=== PATIENT | female | born 1940 | race Hispanic/Latino ===

== ENCOUNTER 2018-02-24 10:34 | Inpatient (IN) | payer MEDICARE ==
[~2018-02-24] VITALS: Ht 152.4 cm; Wt 33.8 kg
[2018-02-24] MEDS ORDERED: FAMOTIDINE 20MG TAB 20 MG TAB ONE (10:52)
[2018-02-24 11:32] LABS: BASOPHILS % (AUTO) 0.2 % (0.0-5.0); EOSINOPHILS % (AUTO) 0.1 % (0.0-8.0); HEMATOCRIT 35.3 % (36-48); LYMPHOCYTES % (AUTO) 6.2 % (21.0-51.0); MEAN CORPUSCULAR HEMOGLOBIN 27.5 pg (27.0-33.0); MEAN CORPUSCULAR HGB CONC 31.7 g/dL (32.0-36.0); MEAN CORPUSCULAR VOLUME 86.8 fL (79-99); MONOCYTES % (AUTO) 6.4 % (3.0-13.0); NEUTROPHILS % (AUTO) 87.1 % (40.0-77.0); PLATELET COUNT (AUTO) 488 K/uL (130-400); RED BLOOD CELL COUNT(AUTO) 4.07 MIL/uL (4.00-5.50); RED CELL DISTRIBUTION WIDTH 15.4 % (11.0-15.5); WHITE BLOOD COUNT (AUTO) 15.4 K/uL (4.8-10.8)
[2018-02-24 11:41] LABS: CREATININE 0.7 mg/dL (0.5-1.5); POTASSIUM 3.1 mmol/L (3.5-5.1)
[2018-02-24 11:46] LABS: BILIRUBIN,TOTAL 0.7 mg/dL (0.2-1.0); TOTAL PROTEIN, SERUM 7.8 g/dL (6.0-8.3)
[2018-02-24] MEDS ORDERED: POTASSIUM BICARB/CIT AC 25 MEQ TABLET.EFF ONE (12:06)
[2018-02-24] MEDS ORDERED: METHYLPREDNISOLONE SOD SUCC 125MG/2ML VIAL ONE (12:07)
[2018-02-24] MEDS ORDERED: LEVOFLOXACIN 750 MG/D5W 150 ML 150 ML ONE (12:07)
[2018-02-24] MEDS ORDERED: IPRATROPIUM/ALBUTEROL SULFATE 3 ML SOLUTION IH ONE (12:38)
[2018-02-24] MEDS ORDERED: POTASSIUM CHLORIDE 20 MEQ ERTAB PO PRN (13:45)
[2018-02-24] MEDS ORDERED: ONDANSETRON HCL 4 MG/2 ML VIAL IV PRN (13:45)
[2018-02-24] MEDS ORDERED: ACETAMINOPHEN 325 MG TAB PO PRN ×2 (13:45)
[2018-02-24] MEDS: METHYLPREDNISOLONE SOD SUCC 125MG/2ML VIAL IVP SCH ×2 (13:45→20:58)
[2018-02-24] MEDS ORDERED: POTASSIUM CHLORIDE 10% ELIXIR 20 MEQ/15 ML UDCUP PO PRN (13:45)
[2018-02-24] MEDS ORDERED: LACTULOSE 20 GM/30 ML UDCUP PO PRN (13:45)
[2018-02-24] MEDS ORDERED: LIDOCAINE HCL-MPF 1% 2ML VIAL IVP PRN (13:45)
[2018-02-24] MEDS ORDERED: MAG HYDROX/AL HYDROX/SIMETH ES 30 ML SUSP UDCUP PO PRN (13:45)
[2018-02-24] MEDS ORDERED: POTASSIUM CHLORIDE 20MEQ/100ML 100 ML IV PRN (13:45)
[2018-02-24] MEDS: LEVOFLOXACIN 500 MG/D5W 100 ML 100 ML IV SCH (13:45)
[2018-02-24] MEDS ORDERED: IPRATROPIUM/ALBUTEROL SULFATE 3 ML SOLUTION IH SCH (14:00)
[2018-02-24 14:46] LABS: APPEARANCE,URINE CLEAR (CLEAR); BILIRUBIN,URINE NEGATIVE (NEGATIVE); COLOR,URINE YELLOW (YELLOW); GLUCOSE, URINE (UA) 100 mg/dL (NEGATIVE); KETONES,URINE NEGATIVE (NEGATIVE); LEUKOCYTE ESTERASE ,URINE NEGATIVE (NEGATIVE); NITRATE,URINE NEGATIVE (NEGATIVE); OCCULT BLOOD,URINE NEGATIVE (NEGATIVE); PROTEIN,URINE 30 (NEGATIVE)
[2018-02-24 15:33] LABS: BACTERIA,URINE Rare /HPF (None Seen); RBC,URINE 0-1 /HPF (0-1); SQUAMOUS EPITHELIAL CELL,UR Rare /HPF (0-2); WBC,URINE 0-1 /HPF (0-1)
[2018-02-24 15:34] LABS: AMORPHOUS SEDIMENT,UR Few /LPF (None Seen)
[2018-02-24] MEDS ORDERED: BUDESONIDE 0.5 MG/2 ML INH IH ONE (18:13)
[2018-02-24] MEDS ORDERED: ENOXAPARIN SODIUM 40 MG/0.4 ML SYRINGE SQ ONE (18:14)
[2018-02-24] MEDS: IPRATROPIUM/ALBUTEROL SULFATE 3 ML SOLUTION IH SCH ×2 (18:41→21:55)
[2018-02-24] MEDS: BUDESONIDE 0.5 MG/2 ML INH IH SCH (18:48)
[2018-02-24] MEDS ORDERED: METHYLPREDNISOLONE SOD SUCC 40MG/ML 1ML ONE (20:37)
[2018-02-24 21:20] VITALS: BP 115/66
[2018-02-24] MEDS: FAMOTIDINE 20MG TAB 20 MG TAB PO SCH (21:59)
[2018-02-24] MEDS: GUAIFENESIN-DM 200/20 MG 10 ML PO PRN (22:00)
[2018-02-24] MEDS ORDERED: LATA2.5D2 OP (23:31)
[2018-02-24] MEDS ORDERED: ATEN50TA PO (23:31)
[2018-02-24] MEDS ORDERED: BUDE10.2 IH (23:31)
[2018-02-24] MEDS ORDERED: AMLO5TAB2 PO (23:31)
[2018-02-25] VITALS: BP 122/68
[2018-02-25] MEDS: IPRATROPIUM/ALBUTEROL SULFATE 3 ML SOLUTION IH SCH ×6 (02:14→22:47)
[2018-02-25 04:00] VITALS: BP 130/66
[2018-02-25 04:12] LABS: HEMATOCRIT 33.9 % (36-48); MEAN CORPUSCULAR HEMOGLOBIN 27.9 pg (27.0-33.0); MEAN CORPUSCULAR HGB CONC 31.9 g/dL (32.0-36.0); MEAN CORPUSCULAR VOLUME 87.4 fL (79-99); NUCLEATED RED BLOOD CELLS 0.1 % (0.0-0.19); PLATELET COUNT (AUTO) 423 K/uL (130-400); RED BLOOD CELL COUNT(AUTO) 3.87 MIL/uL (4.00-5.50); RED CELL DISTRIBUTION WIDTH 15.6 % (11.0-15.5); WHITE BLOOD COUNT (AUTO) 9.2 K/uL (4.8-10.8)
[2018-02-25 04:21] LABS: CREATININE 0.8 mg/dL (0.5-1.5); POTASSIUM 4.2 mmol/L (3.5-5.1)
[2018-02-25] MEDS: METHYLPREDNISOLONE SOD SUCC 125MG/2ML VIAL IVP SCH ×3 (04:36→22:05)
[2018-02-25] MEDS: BUDESONIDE 0.5 MG/2 ML INH IH SCH ×2 (06:22→18:53)
[2018-02-25 08:24] VITALS: BP 140/70
[2018-02-25] MEDS: ENOXAPARIN SODIUM 30 MG/0.3 ML SQ SCH (10:47)
[2018-02-25] MEDS: FAMOTIDINE 20MG TAB 20 MG TAB PO SCH ×2 (10:47→22:06)
[2018-02-25] MEDS: MEGESTROL 400 MG/10 ML UDCUP PO SCH (11:16)
[2018-02-25 11:50] VITALS: BP 129/71
[2018-02-25] MEDS: LEVOFLOXACIN 500 MG/D5W 100 ML 100 ML IV SCH (13:53)
[2018-02-25 16:16] VITALS: BP 121/70
[2018-02-25 19:20] VITALS: BP 101/60
[2018-02-25] MEDS: LATANOPROST 2.5 ML DROPS OP SCH (22:06)
[2018-02-25] MEDS: GUAIFENESIN-DM 200/20 MG 10 ML PO PRN (22:07)
[2018-02-26] VITALS (7 sets, daily range): BP systolic 109–133; BP diastolic 52–63
[2018-02-26] MEDS: IPRATROPIUM/ALBUTEROL SULFATE 3 ML SOLUTION IH SCH ×6 (02:18→22:33)
[2018-02-26] MEDS: METHYLPREDNISOLONE SOD SUCC 125MG/2ML VIAL IVP SCH ×2 (05:42→16:37)
[2018-02-26] MEDS: BUDESONIDE 0.5 MG/2 ML INH IH SCH ×2 (06:27→22:52)
[2018-02-26] MEDS ORDERED: VANCOMYCIN PROTOCOL PER PHARMACY IV SCH (09:00)
[2018-02-26] MEDS: AMLODIPINE BESYLATE 5 MG TAB PO SCH (10:12)
[2018-02-26] MEDS: MEGESTROL 400 MG/10 ML UDCUP PO SCH (10:13)
[2018-02-26] MEDS: ATENOLOL 50 MG TABLET PO SCH (10:13)
[2018-02-26] MEDS: FAMOTIDINE 20MG TAB 20 MG TAB PO SCH ×2 (10:14→22:41)
[2018-02-26] MEDS: ENOXAPARIN SODIUM 30 MG/0.3 ML SQ SCH (10:14)
[2018-02-26] MEDS ORDERED: SODIUM CHLORIDE 3% FOR INHALATION 4 ML/AMP VIAL.NEB IH ONE ×2 (10:18→18:10)
[2018-02-26] MEDS ORDERED: VANCOMYCIN 750MG + D5W 250 ML IV ONE ×2 (12:00)
[2018-02-26] MEDS ORDERED: COMPOUND IV REFRIGERATED 1 EACH IVSOLN MISC PRN (12:00)
[2018-02-26] MEDS ORDERED: MEROPENEM 500MG+NS 50ML 50 ML IV SCH (14:00)
[2018-02-26] MEDS: MEROPENEM 500 MG VIAL IVP SCH ×2 (16:37→22:42)
[2018-02-26] MEDS: METHYLPREDNISOLONE SOD SUCC 40MG/ML 1ML IVP SCH (22:43)
[2018-02-26] MEDS: LATANOPROST 2.5 ML DROPS OP SCH (22:52)
[2018-02-27] MEDS ORDERED: VANCOMYCIN 500MG+NS 100ML 100 ML IV SCH
[2018-02-27] MEDS: IPRATROPIUM/ALBUTEROL SULFATE 3 ML SOLUTION IH SCH ×6 (02:40→22:09)
[2018-02-27 03:58] VITALS: BP 111/56
[2018-02-27] MEDS ORDERED: SODIUM CHLORIDE 3% FOR INHALATION 4 ML/AMP VIAL.NEB IH ONE (05:50)
[2018-02-27] MEDS: MEROPENEM 500 MG VIAL IVP SCH ×3 (06:01→21:57)
[2018-02-27] MEDS: METHYLPREDNISOLONE SOD SUCC 40MG/ML 1ML IVP SCH ×3 (06:02→21:57)
[2018-02-27] MEDS: BUDESONIDE 0.5 MG/2 ML INH IH SCH ×2 (06:18→18:12)
[2018-02-27 09:19] VITALS: BP 132/62
[2018-02-27] MEDS: ATENOLOL 50 MG TABLET PO SCH (10:18)
[2018-02-27] MEDS: MEGESTROL 400 MG/10 ML UDCUP PO SCH (10:18)
[2018-02-27] MEDS: FAMOTIDINE 20MG TAB 20 MG TAB PO SCH ×2 (10:18→21:57)
[2018-02-27] MEDS: AMLODIPINE BESYLATE 5 MG TAB PO SCH (10:18)
[2018-02-27] MEDS: ENOXAPARIN SODIUM 30 MG/0.3 ML SQ SCH (10:18)
[2018-02-27 16:51] VITALS: BP 110/53
[2018-02-27 19:00] VITALS: BP 111/64
[2018-02-27] MEDS: LATANOPROST 2.5 ML DROPS OP SCH (21:58)
[2018-02-28] VITALS: BP_SYST 115; BP_SYST 120; BP_DIAS 59; BP_DIAS 73
[2018-02-28] MEDS: IPRATROPIUM/ALBUTEROL SULFATE 3 ML SOLUTION IH SCH ×6 (02:30→22:12)
[2018-02-28 03:41] LABS: HEMATOCRIT 33.5 % (36-48); MEAN CORPUSCULAR VOLUME 87.4 fL (79-99); PLATELET COUNT (AUTO) 392 K/uL (130-400); RED BLOOD CELL COUNT(AUTO) 3.83 MIL/uL (4.00-5.50); RED CELL DISTRIBUTION WIDTH 15.6 % (11.0-15.5); WHITE BLOOD COUNT (AUTO) 14.5 K/uL (4.8-10.8)
[2018-02-28 04:00] VITALS: BP 126/64
[2018-02-28] MEDS: METHYLPREDNISOLONE SOD SUCC 40MG/ML 1ML IVP SCH ×3 (06:21→22:14)
[2018-02-28] MEDS: MEROPENEM 500 MG VIAL IVP SCH ×3 (06:21→22:14)
[2018-02-28] MEDS: BUDESONIDE 0.5 MG/2 ML INH IH SCH ×2 (06:25→18:13)
[2018-02-28 07:58] VITALS: BP 131/59
[2018-02-28] MEDS: ATENOLOL 50 MG TABLET PO SCH (08:29)
[2018-02-28] MEDS: ENOXAPARIN SODIUM 30 MG/0.3 ML SQ SCH (08:30)
[2018-02-28] MEDS: FAMOTIDINE 20MG TAB 20 MG TAB PO SCH ×2 (08:30→22:14)
[2018-02-28] MEDS: MEGESTROL 400 MG/10 ML UDCUP PO SCH (08:30)
[2018-02-28] MEDS: AMLODIPINE BESYLATE 5 MG TAB PO SCH (08:30)
[2018-02-28 11:50] VITALS: BP 107/73
[2018-02-28 16:00] VITALS: BP 114/56
[2018-02-28 19:00] VITALS: BP 132/71
[2018-02-28] MEDS: LATANOPROST 2.5 ML DROPS OP SCH (22:21)
[2018-03-01] VITALS (13 sets, daily range): BP systolic 100–151; BP diastolic 51–76
[2018-03-01] MEDS: IPRATROPIUM/ALBUTEROL SULFATE 3 ML SOLUTION IH SCH ×6 (02:00→22:16)
[2018-03-01 05:47] LABS: HEMATOCRIT 34.1 % (36-48); MEAN CORPUSCULAR HEMOGLOBIN 28.4 pg (27.0-33.0); MEAN CORPUSCULAR HGB CONC 32.1 g/dL (32.0-36.0); MEAN CORPUSCULAR VOLUME 88.3 fL (79-99); PLATELET COUNT (AUTO) 387 K/uL (130-400); RED BLOOD CELL COUNT(AUTO) 3.86 MIL/uL (4.00-5.50); RED CELL DISTRIBUTION WIDTH 15.6 % (11.0-15.5); WHITE BLOOD COUNT (AUTO) 14.4 K/uL (4.8-10.8)
[2018-03-01 05:52] LABS: CREATININE 0.6 mg/dL (0.5-1.5); POTASSIUM 4.1 mmol/L (3.5-5.1)
[2018-03-01] MEDS: BUDESONIDE 0.5 MG/2 ML INH IH SCH ×2 (06:06→18:13)
[2018-03-01] MEDS: METHYLPREDNISOLONE SOD SUCC 40MG/ML 1ML IVP SCH ×3 (06:14→20:45)
[2018-03-01] MEDS: MEROPENEM 500 MG VIAL IVP SCH ×3 (06:14→20:45)
[2018-03-01] MEDS: FAMOTIDINE 20MG TAB 20 MG TAB PO SCH ×2 (09:14→20:45)
[2018-03-01] MEDS: MEGESTROL 400 MG/10 ML UDCUP PO SCH (09:14)
[2018-03-01] MEDS: ATENOLOL 50 MG TABLET PO SCH (09:15)
[2018-03-01] MEDS: AMLODIPINE BESYLATE 5 MG TAB PO SCH (09:15)
[2018-03-01] MEDS: ENOXAPARIN SODIUM 30 MG/0.3 ML SQ SCH (09:20)
[2018-03-01] MEDS: LATANOPROST 2.5 ML DROPS OP SCH (20:52)
[2018-03-02] VITALS (9 sets, daily range): BP systolic 109–138; BP diastolic 59–85
[2018-03-02] MEDS: IPRATROPIUM/ALBUTEROL SULFATE 3 ML SOLUTION IH SCH ×6 (01:29→22:03)
[2018-03-02] MEDS: METHYLPREDNISOLONE SOD SUCC 40MG/ML 1ML IVP SCH (05:49)
[2018-03-02] MEDS: MEROPENEM 500 MG VIAL IVP SCH ×3 (05:49→21:51)
[2018-03-02 06:01] LABS: HEMATOCRIT 34.7 % (36-48); MEAN CORPUSCULAR HEMOGLOBIN 27.7 pg (27.0-33.0); MEAN CORPUSCULAR HGB CONC 31.9 g/dL (32.0-36.0); MEAN CORPUSCULAR VOLUME 86.6 fL (79-99); PLATELET COUNT (AUTO) 468 K/uL (130-400); RED CELL DISTRIBUTION WIDTH 15.8 % (11.0-15.5); WHITE BLOOD COUNT (AUTO) 15.8 K/uL (4.8-10.8)
[2018-03-02] MEDS: BUDESONIDE 0.5 MG/2 ML INH IH SCH ×2 (06:15→18:40)
[2018-03-02 06:16] LABS: CREATININE 0.6 mg/dL (0.5-1.5)
[2018-03-02] MEDS: MEGESTROL 400 MG/10 ML UDCUP PO SCH (10:14)
[2018-03-02] MEDS: ATENOLOL 50 MG TABLET PO SCH (10:15)
[2018-03-02] MEDS: FAMOTIDINE 20MG TAB 20 MG TAB PO SCH ×2 (10:15→20:23)
[2018-03-02] MEDS: AMLODIPINE BESYLATE 5 MG TAB PO SCH (10:15)
[2018-03-02] MEDS: ENOXAPARIN SODIUM 30 MG/0.3 ML SQ SCH (10:19)
[2018-03-02] MEDS: PREDNISONE 20 MG TABLET PO SCH (20:23)
[2018-03-02] MEDS: LATANOPROST 2.5 ML DROPS OP SCH (20:23)
[2018-03-03] MEDS: IPRATROPIUM/ALBUTEROL SULFATE 3 ML SOLUTION IH SCH ×6 (01:38→22:05)
[2018-03-03 03:36] VITALS: BP 129/74
[2018-03-03 03:55] LABS: HEMATOCRIT 35.2 % (36-48); MEAN CORPUSCULAR HEMOGLOBIN 27.9 pg (27.0-33.0); MEAN CORPUSCULAR HGB CONC 31.9 g/dL (32.0-36.0); MEAN CORPUSCULAR VOLUME 87.4 fL (79-99); PLATELET COUNT (AUTO) 438 K/uL (130-400); RED BLOOD CELL COUNT(AUTO) 4.03 MIL/uL (4.00-5.50); WHITE BLOOD COUNT (AUTO) 16.1 K/uL (4.8-10.8)
[2018-03-03] MEDS: MEROPENEM 500 MG VIAL IVP SCH ×3 (05:49→22:01)
[2018-03-03] MEDS: BUDESONIDE 0.5 MG/2 ML INH IH SCH ×2 (06:26→18:56)
[2018-03-03 07:37] VITALS: BP 123/64
[2018-03-03] MEDS: ATENOLOL 50 MG TABLET PO SCH (09:07)
[2018-03-03] MEDS: AMLODIPINE BESYLATE 5 MG TAB PO SCH (09:07)
[2018-03-03] MEDS: PREDNISONE 20 MG TABLET PO SCH ×2 (09:07→20:30)
[2018-03-03] MEDS: FAMOTIDINE 20MG TAB 20 MG TAB PO SCH ×2 (09:07→20:30)
[2018-03-03] MEDS: MEGESTROL 400 MG/10 ML UDCUP PO SCH (09:07)
[2018-03-03] MEDS: ENOXAPARIN SODIUM 30 MG/0.3 ML SQ SCH (09:08)
[2018-03-03 11:00] VITALS: BP 123/64
[2018-03-03] MEDS ORDERED: ONDANSETRON HCL MDV 20ML 2 MG/ML VIAL IV PRN (12:26)
[2018-03-03 16:00] VITALS: BP 116/59
[2018-03-03 19:00] VITALS: BP 101/50
[2018-03-03] MEDS: LATANOPROST 2.5 ML DROPS OP SCH (20:30)
[2018-03-03 23:00] VITALS: BP_SYST 121; BP_SYST 148; BP_DIAS 66; BP_DIAS 75
[2018-03-04] MEDS: IPRATROPIUM/ALBUTEROL SULFATE 3 ML SOLUTION IH SCH ×6 (01:44→22:42)
[2018-03-04 03:00] VITALS: BP 122/67
[2018-03-04] MEDS: MEROPENEM 500 MG VIAL IVP SCH ×3 (06:01→21:53)
[2018-03-04] MEDS: BUDESONIDE 0.5 MG/2 ML INH IH SCH ×2 (06:42→18:38)
[2018-03-04 08:00] VITALS: BP 127/69
[2018-03-04] MEDS: FAMOTIDINE 20MG TAB 20 MG TAB PO SCH ×2 (09:11→21:00)
[2018-03-04] MEDS: PREDNISONE 20 MG TABLET PO SCH ×2 (09:11→21:00)
[2018-03-04] MEDS: MEGESTROL 400 MG/10 ML UDCUP PO SCH (09:11)
[2018-03-04] MEDS: ATENOLOL 50 MG TABLET PO SCH (09:12)
[2018-03-04] MEDS: AMLODIPINE BESYLATE 5 MG TAB PO SCH (09:13)
[2018-03-04] MEDS: ENOXAPARIN SODIUM 30 MG/0.3 ML SQ SCH (09:14)
[2018-03-04 11:00] VITALS: BP 124/60
[2018-03-04 16:00] VITALS: BP 111/56
[2018-03-04 19:00] VITALS: BP 125/79
[2018-03-04] MEDS: LATANOPROST 2.5 ML DROPS OP SCH (21:00)
[2018-03-05 00:07] VITALS: BP 127/62
[2018-03-05] MEDS: IPRATROPIUM/ALBUTEROL SULFATE 3 ML SOLUTION IH SCH ×4 (02:10→13:35)
[2018-03-05 04:20] VITALS: BP 128/71
[2018-03-05] MEDS: MEROPENEM 500 MG VIAL IVP SCH ×2 (05:50→17:09)
[2018-03-05] MEDS: BUDESONIDE 0.5 MG/2 ML INH IH SCH (06:25)
[2018-03-05 08:00] VITALS: BP 132/69
[2018-03-05] MEDS: MEGESTROL 400 MG/10 ML UDCUP PO SCH (09:05)
[2018-03-05] MEDS: PREDNISONE 20 MG TABLET PO SCH (09:05)
[2018-03-05] MEDS: FAMOTIDINE 20MG TAB 20 MG TAB PO SCH (09:05)
[2018-03-05] MEDS: AMLODIPINE BESYLATE 5 MG TAB PO SCH (09:05)
[2018-03-05] MEDS: ATENOLOL 50 MG TABLET PO SCH (09:06)
[2018-03-05] MEDS: ENOXAPARIN SODIUM 30 MG/0.3 ML SQ SCH (09:08)
[2018-03-05 11:00] VITALS: BP 114/53
[2018-03-05 16:00] VITALS: BP 125/66
== END 2018-03-05 17:29 | disposition home or self-care (01) | DRG 193 ==
LOC: EDH 10:34 → EDHIP 13:33 → 3AH 20:32
PROVIDERS: ADMIT Family Medicine; ATTEND Family Medicine
DX: J18.9 Pneumonia, unspecified organism (principal); J96.21 Acute and chronic respiratory failure with hypoxia; I82.409 Acute embolism and thrombosis of unspecified deep veins of unspecified lower extremity; R64 Cachexia; E44.1 Mild protein-calorie malnutrition; J44.0 Chronic obstructive pulmonary disease with (acute) lower respiratory infection; J98.11 Atelectasis; Z68.1 Body mass index [BMI] 19.9 or less, adult; J44.1 Chronic obstructive pulmonary disease with (acute) exacerbation; Z99.81 Dependence on supplemental oxygen; I10 Essential (primary) hypertension; E03.9 Hypothyroidism, unspecified; Z78.9 Other specified health status; Z90.49 Acquired absence of other specified parts of digestive tract; Z87.01 Personal history of pneumonia (recurrent); Z28.21 Immunization not carried out because of patient refusal
CPT/HCPCS: 36415; 71045; 71046; 71250; 80048; 80053; 81001; 82948; 83605; 83880; 84484; 85025; 85027; 86480; 87040; 87116; 87206; 93005; 93306; 93970; 94640; 94664; 94760; A4218; J1650; J1956; J2185; J2920; J2930; J3370; J7060

== ENCOUNTER 2018-03-18 12:04 | Inpatient (IN) | payer MEDICARE ==
[~2018-03-18] VITALS: Ht 152.4 cm; Wt 31.8 kg
[~2018-03-18 12:04] MED LIST: AMLO5TAB2 PO; ATEN50TA PO; BUDE10.2 IH; LATA2.5D2 OP
[2018-03-18 12:35] LABS: BASOPHILS % (AUTO) 0.3 % (0.0-5.0); EOSINOPHILS % (AUTO) 0.1 % (0.0-8.0); HEMATOCRIT 38.2 % (36-48); LYMPHOCYTES % (AUTO) 3.8 % (21.0-51.0); MEAN CORPUSCULAR HEMOGLOBIN 29.2 pg (27.0-33.0); MEAN CORPUSCULAR HGB CONC 32.5 g/dL (32.0-36.0); MEAN CORPUSCULAR VOLUME 89.8 fL (79-99); MONOCYTES % (AUTO) 4.4 % (3.0-13.0); NEUTROPHILS % (AUTO) 91.4 % (40.0-77.0); PLATELET COUNT (AUTO) 366 K/uL (130-400); RED BLOOD CELL COUNT(AUTO) 4.25 MIL/uL (4.00-5.50); RED CELL DISTRIBUTION WIDTH 17.8 % (11.0-15.5)
[2018-03-18 12:49] LABS: CREATININE 0.6 mg/dL (0.5-1.5); POTASSIUM 3.9 mmol/L (3.5-5.1)
[2018-03-18] MEDS ORDERED: METHYLPREDNISOLONE SOD SUCC 40MG/ML 1ML ONE (12:54)
[2018-03-18 12:56] LABS: INR 0.92 (0.85-1.15); PARTIAL THROMBOPLASTIN TIME 29.7 SEC (26.3-35.5); PROTHROMBIN TIME 9.7 SEC (9.6-11.6)
[2018-03-18 13:03] LABS: ALBUMIN 2.2 g/dL (3.5-5.0); BILIRUBIN,TOTAL 0.5 mg/dL (0.2-1.0); CREATINE KINASE MB 0.7 ng/mL (0.5-3.6); TOTAL PROTEIN, SERUM 6.8 g/dL (6.0-8.3)
[2018-03-18 13:05] LABS: B-TYPE NATRIURETIC PEPTIDE 383 pg/mL (0-100)
[2018-03-18] MEDS ORDERED: IPRATROPIUM/ALBUTEROL SULFATE 3 ML SOLUTION IH ONE (13:10)
[2018-03-18] MEDS ORDERED: ASPIRIN 325 MG TABLET ONE (13:28)
[2018-03-18] MEDS ORDERED: FUROSEMIDE 10 MG/ML 4ML VIAL ONE (13:53)
[2018-03-18] MEDS ORDERED: LEVOFLOXACIN 500 MG/D5W 100 ML 100 ML ONE (13:53)
[2018-03-18] MEDS ORDERED: IOPAMIDOL-370 75 ML VIAL IV ONE (14:14)
[2018-03-18] MEDS ORDERED: PRED20TA3 PO (15:45)
[2018-03-18] MEDS ORDERED: ATEN50TA PO (15:45)
[2018-03-18] MEDS ORDERED: AMLO5TAB2 PO (15:45)
[2018-03-18] MEDS ORDERED: MORPHINE SULFATE 4 MG/1ML SYG IVP PRN (17:00)
[2018-03-18 17:45] VITALS: BP 112/42
[2018-03-18] MEDS: ENOXAPARIN SODIUM 30 MG/0.3 ML SQ SCH (17:45)
[2018-03-18] MEDS: IPRATROPIUM/ALBUTEROL SULFATE 3 ML SOLUTION IH SCH ×2 (19:06→21:53)
[2018-03-18 20:00] VITALS: BP 118/71
[2018-03-18] MEDS: METHYLPREDNISOLONE SOD SUCC 125MG/2ML VIAL IVP SCH (21:05)
[2018-03-19] VITALS: BP 111/59
[2018-03-19] MEDS: IPRATROPIUM/ALBUTEROL SULFATE 3 ML SOLUTION IH SCH ×5 (02:36→23:26)
[2018-03-19 03:52] VITALS: BP 114/59
[2018-03-19] MEDS: METHYLPREDNISOLONE SOD SUCC 125MG/2ML VIAL IVP SCH ×3 (04:55→20:27)
[2018-03-19 05:37] LABS: HEMATOCRIT 33.6 % (36-48); MEAN CORPUSCULAR HEMOGLOBIN 29.5 pg (27.0-33.0); MEAN CORPUSCULAR HGB CONC 33.2 g/dL (32.0-36.0); MEAN CORPUSCULAR VOLUME 88.9 fL (79-99); PLATELET COUNT (AUTO) 325 K/uL (130-400); RED BLOOD CELL COUNT(AUTO) 3.78 MIL/uL (4.00-5.50); RED CELL DISTRIBUTION WIDTH 17.7 % (11.0-15.5); WHITE BLOOD COUNT (AUTO) 9.1 K/uL (4.8-10.8)
[2018-03-19 05:43] LABS: POTASSIUM 3.3 mmol/L (3.5-5.1)
[2018-03-19 08:07] VITALS: BP 110/58
[2018-03-19] MEDS ORDERED: FUROSEMIDE 10 MG/ML 4ML VIAL IVP SCH (09:00)
[2018-03-19] MEDS ORDERED: MEGE400O20 PO (09:14)
[2018-03-19] MEDS: ATENOLOL 50 MG TABLET PO SCH (09:15)
[2018-03-19] MEDS: MEGESTROL 400 MG/10 ML UDCUP PO SCH (09:45)
[2018-03-19] MEDS: ENOXAPARIN SODIUM 30 MG/0.3 ML SQ SCH (10:03)
[2018-03-19] MEDS ORDERED: POTASSIUM CHLORIDE 10% ELIXIR 20 MEQ/15 ML UDCUP PO PRN (10:45)
[2018-03-19 12:10] VITALS: BP 104/49
[2018-03-19] MEDS: LEVOFLOXACIN 500 MG/D5W 100 ML 100 ML IV SCH (13:21)
[2018-03-19 16:00] VITALS: BP 126/71
[2018-03-19] MEDS: POTASSIUM CHLORIDE 20 MEQ ERTAB PO PRN (18:25)
[2018-03-19 20:00] VITALS: BP 134/69
[2018-03-19] MEDS ORDERED: IPRATROPIUM/ALBUTEROL SULFATE 3 ML SOLUTION IH PRN (20:45)
[2018-03-19] MEDS: ACETYLCYSTEINE 10% 100MG/ML 4ML VIAL IH SCH (23:26)
[2018-03-20] VITALS (8 sets, daily range): BP systolic 99–134; BP diastolic 55–71
[2018-03-20] MEDS: METHYLPREDNISOLONE SOD SUCC 125MG/2ML VIAL IVP SCH ×3 (04:58→21:07)
[2018-03-20 06:30] LABS: CREATININE 0.8 mg/dL (0.5-1.5); POTASSIUM 3.8 mmol/L (3.5-5.1)
[2018-03-20] MEDS: ACETYLCYSTEINE 10% 100MG/ML 4ML VIAL IH SCH ×3 (06:37→19:29)
[2018-03-20] MEDS: IPRATROPIUM/ALBUTEROL SULFATE 3 ML SOLUTION IH SCH ×3 (06:37→19:29)
[2018-03-20] MEDS: ATENOLOL 50 MG TABLET PO SCH (10:10)
[2018-03-20] MEDS: AMLODIPINE BESYLATE 5 MG TAB PO SCH (10:10)
[2018-03-20] MEDS: ENOXAPARIN SODIUM 30 MG/0.3 ML SQ SCH (10:10)
[2018-03-20] MEDS: BALSAM PERU/CASTOR OIL 60 GM TUBE TP SCH (10:11)
[2018-03-20] MEDS: MEGESTROL 400 MG/10 ML UDCUP PO SCH (10:11)
[2018-03-20] MEDS: LEVOFLOXACIN 500 MG/D5W 100 ML 100 ML IV SCH (14:17)
[2018-03-20] MEDS ORDERED: SODIUM CHLORIDE 0.9% 250 ML IV ONE (17:05)
[2018-03-20] MEDS: FLUCONAZOLE 200 MG/NS 100 ML 100 ML IV SCH (17:35)
[2018-03-20] MEDS ORDERED: LACTULOSE 20 GM/30 ML UDCUP PO PRN (20:15)
[2018-03-21] MEDS: ACETYLCYSTEINE 10% 100MG/ML 4ML VIAL IH SCH ×5 (00:08→23:49)
[2018-03-21] MEDS: IPRATROPIUM/ALBUTEROL SULFATE 3 ML SOLUTION IH SCH ×5 (00:08→23:48)
[2018-03-21 04:00] VITALS: BP 132/63
[2018-03-21] MEDS: METHYLPREDNISOLONE SOD SUCC 125MG/2ML VIAL IVP SCH ×3 (05:04→21:25)
[2018-03-21 06:04] LABS: HEMATOCRIT 33.1 % (36-48); MEAN CORPUSCULAR HEMOGLOBIN 29.4 pg (27.0-33.0); MEAN CORPUSCULAR HGB CONC 33.2 g/dL (32.0-36.0); MEAN CORPUSCULAR VOLUME 88.5 fL (79-99); PLATELET COUNT (AUTO) 350 K/uL (130-400); RED BLOOD CELL COUNT(AUTO) 3.74 MIL/uL (4.00-5.50); RED CELL DISTRIBUTION WIDTH 17.3 % (11.0-15.5); WHITE BLOOD COUNT (AUTO) 10.9 K/uL (4.8-10.8)
[2018-03-21 06:06] LABS: CREATININE 0.7 mg/dL (0.5-1.5); POTASSIUM 3.5 mmol/L (3.5-5.1)
[2018-03-21] MEDS: AMLODIPINE BESYLATE 5 MG TAB PO SCH (09:12)
[2018-03-21] MEDS: MEGESTROL 400 MG/10 ML UDCUP PO SCH (09:13)
[2018-03-21] MEDS: ATENOLOL 50 MG TABLET PO SCH (09:13)
[2018-03-21] MEDS: ENOXAPARIN SODIUM 30 MG/0.3 ML SQ SCH (09:15)
[2018-03-21] MEDS: FLUCONAZOLE 200 MG/NS 100 ML 100 ML IV SCH (09:16)
[2018-03-21] MEDS: BALSAM PERU/CASTOR OIL 60 GM TUBE TP SCH (09:18)
[2018-03-21 09:29] VITALS: BP 156/69
[2018-03-21] MEDS: LEVOFLOXACIN 500 MG/D5W 100 ML 100 ML IV SCH (13:13)
[2018-03-21 15:50] VITALS: BP 122/59
[2018-03-21] MEDS: POTASSIUM CHLORIDE 20 MEQ ERTAB PO PRN (18:53)
[2018-03-21 19:59] VITALS: BP 127/61
[2018-03-21] MEDS: THEOPHYLLINE ANHYDROUS 100 MG TAB.SR.12H PO SCH (21:25)
[2018-03-21] MEDS: BUDESONIDE 0.5 MG/2 ML INH IH SCH (23:49)
[2018-03-21 23:54] VITALS: BP 132/61
[2018-03-22 04:00] VITALS: BP 125/58
[2018-03-22] MEDS: METHYLPREDNISOLONE SOD SUCC 125MG/2ML VIAL IVP SCH (05:00)
[2018-03-22] MEDS: ACETYLCYSTEINE 10% 100MG/ML 4ML VIAL IH SCH ×4 (06:02→23:49)
[2018-03-22] MEDS: IPRATROPIUM/ALBUTEROL SULFATE 3 ML SOLUTION IH SCH ×4 (06:02→23:49)
[2018-03-22] MEDS: BUDESONIDE 0.5 MG/2 ML INH IH SCH ×2 (06:02→23:57)
[2018-03-22 06:34] LABS: HEMATOCRIT 35.3 % (36-48); MEAN CORPUSCULAR HEMOGLOBIN 28.5 pg (27.0-33.0); MEAN CORPUSCULAR HGB CONC 32.3 g/dL (32.0-36.0); MEAN CORPUSCULAR VOLUME 88.2 fL (79-99); PLATELET COUNT (AUTO) 379 K/uL (130-400); RED CELL DISTRIBUTION WIDTH 17.3 % (11.0-15.5); WHITE BLOOD COUNT (AUTO) 14.4 K/uL (4.8-10.8)
[2018-03-22 06:50] LABS: CREATININE 0.6 mg/dL (0.5-1.5); PHOSPHORUS 2.5 mg/dL (2.5-4.9); POTASSIUM 3.3 mmol/L (3.5-5.1)
[2018-03-22 07:30] VITALS: BP 136/74
[2018-03-22] MEDS: FLUCONAZOLE 200 MG/NS 100 ML 100 ML IV SCH (08:36)
[2018-03-22] MEDS: ATENOLOL 50 MG TABLET PO SCH (08:37)
[2018-03-22] MEDS: AMLODIPINE BESYLATE 5 MG TAB PO SCH (08:38)
[2018-03-22] MEDS: ENOXAPARIN SODIUM 30 MG/0.3 ML SQ SCH (08:38)
[2018-03-22] MEDS: BALSAM PERU/CASTOR OIL 60 GM TUBE TP SCH (08:39)
[2018-03-22] MEDS: MEGESTROL 400 MG/10 ML UDCUP PO SCH (08:41)
[2018-03-22] MEDS: THEOPHYLLINE ANHYDROUS 100 MG TAB.SR.12H PO SCH ×2 (09:41→20:25)
[2018-03-22 11:00] VITALS: BP 122/83
[2018-03-22] MEDS ORDERED: DIATR MEGLU/DIATRIZOATE SODIUM 30 ML BOTTLE ONE (12:29)
[2018-03-22] MEDS ORDERED: MAG HYDROX/AL HYDROX/SIMETH ES 30 ML SUSP UDCUP PO PRN (13:00)
[2018-03-22] MEDS ORDERED: METHYLPREDNISOLONE SOD SUCC 40MG/ML 1ML IVP SCH (13:00)
[2018-03-22] MEDS: LEVOFLOXACIN 500 MG/D5W 100 ML 100 ML IV SCH (13:03)
[2018-03-22] MEDS ORDERED: PANTOPRAZOLE SODIUM 40 MG TABLET.DR PO SCH (14:00)
[2018-03-22 16:00] VITALS: BP 127/59
[2018-03-22 20:00] VITALS: BP 142/71
[2018-03-22 23:45] VITALS: BP 134/68
[2018-03-23 04:00] VITALS: BP 147/67
[2018-03-23 05:38] LABS: MEAN CORPUSCULAR HEMOGLOBIN 28.3 pg (27.0-33.0); MEAN CORPUSCULAR HGB CONC 32.4 g/dL (32.0-36.0); MEAN CORPUSCULAR VOLUME 87.6 fL (79-99); PLATELET COUNT (AUTO) 443 K/uL (130-400); RED BLOOD CELL COUNT(AUTO) 4.23 MIL/uL (4.00-5.50); RED CELL DISTRIBUTION WIDTH 17.2 % (11.0-15.5); WHITE BLOOD COUNT (AUTO) 23.4 K/uL (4.8-10.8)
[2018-03-23 05:47] LABS: CREATININE 0.6 mg/dL (0.5-1.5)
[2018-03-23 05:51] LABS: POTASSIUM 2.6 mmol/L (3.5-5.1)
[2018-03-23] MEDS: LIDOCAINE HCL-MPF 1% 2ML VIAL IVP PRN ×2 (05:58→16:36)
[2018-03-23] MEDS: POTASSIUM CHLORIDE 20MEQ/100ML 100 ML IV PRN ×2 (05:58→16:36)
[2018-03-23] MEDS: IPRATROPIUM/ALBUTEROL SULFATE 3 ML SOLUTION IH SCH ×4 (06:13→23:47)
[2018-03-23] MEDS: BUDESONIDE 0.5 MG/2 ML INH IH SCH ×2 (06:13→18:30)
[2018-03-23] MEDS: ACETYLCYSTEINE 10% 100MG/ML 4ML VIAL IH SCH ×2 (06:13→11:30)
[2018-03-23] MEDS ORDERED: DIATR MEGLU/DIATRIZOATE SODIUM 30 ML BOTTLE ONE (07:31)
[2018-03-23 08:00] VITALS: BP 113/58
[2018-03-23] MEDS: BALSAM PERU/CASTOR OIL 60 GM TUBE TP SCH (09:00)
[2018-03-23 09:29] LABS: CREATININE 0.7 mg/dL (0.5-1.5)
[2018-03-23 09:33] LABS: POTASSIUM 2.9 mmol/L (3.5-5.1)
[2018-03-23 09:59] LABS: AMYLASE 102 U/L (25-115); LIPASE 115 U/L (114-286)
[2018-03-23] MEDS ORDERED: PANTOPRAZOLE 40 MG/VIAL IV SCH (10:00)
[2018-03-23] MEDS ORDERED: MAG HYDROX/AL HYDROX/SIMETH ES 30 ML SUSP UDCUP PO SCH (10:15)
[2018-03-23] MEDS ORDERED: MAG HYDROX/AL HYDROX/SIMETH ES 30 ML SUSP UDCUP PO PRN (10:15)
[2018-03-23] MEDS: PREDNISONE 20 MG TABLET PO SCH (11:03)
[2018-03-23] MEDS: AMLODIPINE BESYLATE 5 MG TAB PO SCH (11:04)
[2018-03-23] MEDS: THEOPHYLLINE ANHYDROUS 100 MG TAB.SR.12H PO SCH ×2 (11:04→22:24)
[2018-03-23] MEDS: MEGESTROL 400 MG/10 ML UDCUP PO SCH (11:07)
[2018-03-23] MEDS: ENOXAPARIN SODIUM 30 MG/0.3 ML SQ SCH (11:11)
[2018-03-23] MEDS: ATENOLOL 50 MG TABLET PO SCH (11:12)
[2018-03-23 12:00] VITALS: BP 127/56
[2018-03-23] MEDS: LEVOFLOXACIN 500 MG/D5W 100 ML 100 ML IV SCH (13:42)
[2018-03-23 17:53] VITALS: BP 110/81
[2018-03-23 20:00] VITALS: BP 134/75
[2018-03-23] MEDS: PANTOPRAZOLE SODIUM 40 MG TABLET.DR PO SCH (22:24)
[2018-03-24] VITALS: BP 101/62
[2018-03-24] MEDS: POTASSIUM CHLORIDE 20MEQ/100ML 100 ML IV PRN ×2 (01:52→16:02)
[2018-03-24 04:00] VITALS: BP 149/37
[2018-03-24] MEDS: ACETYLCYSTEINE 10% 100MG/ML 4ML VIAL IH SCH ×2 (06:00→11:52)
[2018-03-24 06:29] LABS: HEMATOCRIT 36.2 % (36-48); MEAN CORPUSCULAR HEMOGLOBIN 28.2 pg (27.0-33.0); MEAN CORPUSCULAR HGB CONC 31.9 g/dL (32.0-36.0); MEAN CORPUSCULAR VOLUME 88.5 fL (79-99); PLATELET COUNT (AUTO) 463 K/uL (130-400); RED BLOOD CELL COUNT(AUTO) 4.09 MIL/uL (4.00-5.50); WHITE BLOOD COUNT (AUTO) 16.5 K/uL (4.8-10.8)
[2018-03-24 06:32] LABS: CREATININE 0.6 mg/dL (0.5-1.5); POTASSIUM 3.2 mmol/L (3.5-5.1)
[2018-03-24] MEDS: BUDESONIDE 0.5 MG/2 ML INH IH SCH ×2 (07:31→19:08)
[2018-03-24] MEDS: IPRATROPIUM/ALBUTEROL SULFATE 3 ML SOLUTION IH SCH ×3 (07:31→18:57)
[2018-03-24 08:00] VITALS: BP 124/58
[2018-03-24] MEDS: BALSAM PERU/CASTOR OIL 60 GM TUBE TP SCH (09:00)
[2018-03-24] MEDS: PREDNISONE 20 MG TABLET PO SCH (09:16)
[2018-03-24] MEDS: THEOPHYLLINE ANHYDROUS 100 MG TAB.SR.12H PO SCH ×2 (09:17→20:16)
[2018-03-24] MEDS: PANTOPRAZOLE SODIUM 40 MG TABLET.DR PO SCH ×2 (09:17→20:16)
[2018-03-24] MEDS: AMLODIPINE BESYLATE 5 MG TAB PO SCH (09:18)
[2018-03-24] MEDS: ATENOLOL 50 MG TABLET PO SCH (09:19)
[2018-03-24] MEDS: MEGESTROL 400 MG/10 ML UDCUP PO SCH (09:20)
[2018-03-24] MEDS: ENOXAPARIN SODIUM 30 MG/0.3 ML SQ SCH (09:21)
[2018-03-24 14:35] VITALS: BP 119/58
[2018-03-24] MEDS: LEVOFLOXACIN 500 MG/D5W 100 ML 100 ML IV SCH (14:38)
[2018-03-24] MEDS: LIDOCAINE HCL-MPF 1% 2ML VIAL IVP PRN (16:03)
[2018-03-24 16:25] VITALS: BP 108/60
[2018-03-24 20:00] VITALS: BP 116/70
[2018-03-25] VITALS (8 sets, daily range): BP systolic 107–141; BP diastolic 54–71
[2018-03-25] MEDS: IPRATROPIUM/ALBUTEROL SULFATE 3 ML SOLUTION IH SCH ×5 (06:00→23:41)
[2018-03-25 06:16] LABS: HEMATOCRIT 34.7 % (36-48); MEAN CORPUSCULAR HEMOGLOBIN 28.5 pg (27.0-33.0); MEAN CORPUSCULAR HGB CONC 32.6 g/dL (32.0-36.0); MEAN CORPUSCULAR VOLUME 87.4 fL (79-99); PLATELET COUNT (AUTO) 524 K/uL (130-400); RED BLOOD CELL COUNT(AUTO) 3.97 MIL/uL (4.00-5.50); RED CELL DISTRIBUTION WIDTH 17.3 % (11.0-15.5); WHITE BLOOD COUNT (AUTO) 20.1 K/uL (4.8-10.8)
[2018-03-25 06:31] LABS: CREATININE 0.6 mg/dL (0.5-1.5); MAGNESIUM 1.9 mg/dL (1.80-2.40); PHOSPHORUS 2.1 mg/dL (2.5-4.9); POTASSIUM 3.1 mmol/L (3.5-5.1)
[2018-03-25] MEDS: POTASSIUM CHLORIDE 20MEQ/100ML 100 ML IV PRN ×2 (07:08→11:04)
[2018-03-25] MEDS: BUDESONIDE 0.5 MG/2 ML INH IH SCH ×2 (07:19→19:00)
[2018-03-25] MEDS: THEOPHYLLINE ANHYDROUS 100 MG TAB.SR.12H PO SCH ×2 (08:40→20:36)
[2018-03-25] MEDS: ATENOLOL 50 MG TABLET PO SCH (08:40)
[2018-03-25] MEDS: PREDNISONE 20 MG TABLET PO SCH (08:41)
[2018-03-25] MEDS: AMLODIPINE BESYLATE 5 MG TAB PO SCH (08:41)
[2018-03-25] MEDS: MEGESTROL 400 MG/10 ML UDCUP PO SCH (08:42)
[2018-03-25] MEDS: PANTOPRAZOLE SODIUM 40 MG TABLET.DR PO SCH ×2 (08:42→20:36)
[2018-03-25] MEDS: ENOXAPARIN SODIUM 30 MG/0.3 ML SQ SCH (08:43)
[2018-03-25] MEDS ORDERED: DRONABINOL 2.5 MG CAP PO SCH (16:30)
[2018-03-25] MEDS: LEVOFLOXACIN 500 MG/D5W 100 ML 100 ML IV SCH (17:06)
[2018-03-25] MEDS: BALSAM PERU/CASTOR OIL 60 GM TUBE TP SCH (17:07)
[2018-03-26 04:41] VITALS: BP 137/80
[2018-03-26 05:54] LABS: HEMATOCRIT 33.2 % (36-48); MEAN CORPUSCULAR HEMOGLOBIN 28.9 pg (27.0-33.0); MEAN CORPUSCULAR VOLUME 87.5 fL (79-99); NUCLEATED RED BLOOD CELLS 0.1 % (0.0-0.19); PLATELET COUNT (AUTO) 572 K/uL (130-400); RED CELL DISTRIBUTION WIDTH 17.1 % (11.0-15.5); WHITE BLOOD COUNT (AUTO) 17.3 K/uL (4.8-10.8)
[2018-03-26 06:12] LABS: CREATININE 0.6 mg/dL (0.5-1.5); POTASSIUM 3.3 mmol/L (3.5-5.1)
[2018-03-26] MEDS: IPRATROPIUM/ALBUTEROL SULFATE 3 ML SOLUTION IH SCH ×4 (07:08→23:40)
[2018-03-26] MEDS: BUDESONIDE 0.5 MG/2 ML INH IH SCH ×2 (07:08→18:58)
[2018-03-26 08:00] VITALS: BP 143/68
[2018-03-26] MEDS ORDERED: PREDNISONE 20 MG TABLET PO SCH (09:00)
[2018-03-26] MEDS: ATENOLOL 50 MG TABLET PO SCH (09:10)
[2018-03-26] MEDS: POTASSIUM CHLORIDE 20 MEQ ERTAB PO PRN ×2 (09:12→17:35)
[2018-03-26] MEDS: THEOPHYLLINE ANHYDROUS 100 MG TAB.SR.12H PO SCH (09:15)
[2018-03-26] MEDS: MEGESTROL 400 MG/10 ML UDCUP PO SCH (09:15)
[2018-03-26] MEDS: AMLODIPINE BESYLATE 5 MG TAB PO SCH (09:16)
[2018-03-26] MEDS: PANTOPRAZOLE SODIUM 40 MG TABLET.DR PO SCH ×2 (09:17→20:46)
[2018-03-26] MEDS: BALSAM PERU/CASTOR OIL 60 GM TUBE TP SCH (09:18)
[2018-03-26] MEDS: ENOXAPARIN SODIUM 30 MG/0.3 ML SQ SCH (09:18)
[2018-03-26] MEDS: LORAZEPAM 0.5 MG TABLET PO PRN ×2 (09:21→20:46)
[2018-03-26 12:00] VITALS: BP 115/61
[2018-03-26 16:00] VITALS: BP 118/56
[2018-03-26] MEDS: LEVOFLOXACIN 500 MG/D5W 100 ML 100 ML IV SCH (17:30)
[2018-03-26] MEDS: DRONABINOL 2.5 MG CAP PO SCH (17:30)
[2018-03-26] MEDS: POLYETHYLENE GLYCOL 3350 17 GM POWD.PACK PO PRN ×2 (17:30→20:46)
[2018-03-26 19:48] VITALS: BP 133/62
[2018-03-26 23:37] VITALS: BP 139/68
[2018-03-27 04:31] VITALS: BP 121/60
[2018-03-27 04:59] LABS: HEMATOCRIT 33.8 % (36-48); MEAN CORPUSCULAR HEMOGLOBIN 28.1 pg (27.0-33.0); MEAN CORPUSCULAR VOLUME 87.9 fL (79-99); PLATELET COUNT (AUTO) 578 K/uL (130-400); RED BLOOD CELL COUNT(AUTO) 3.84 MIL/uL (4.00-5.50); RED CELL DISTRIBUTION WIDTH 17.3 % (11.0-15.5); WHITE BLOOD COUNT (AUTO) 14.7 K/uL (4.8-10.8)
[2018-03-27 05:11] LABS: CREATININE 0.7 mg/dL (0.5-1.5); POTASSIUM 4.2 mmol/L (3.5-5.1)
[2018-03-27 07:30] VITALS: BP 124/62
[2018-03-27] MEDS: IPRATROPIUM/ALBUTEROL SULFATE 3 ML SOLUTION IH SCH ×2 (07:33→11:24)
[2018-03-27] MEDS: BUDESONIDE 0.5 MG/2 ML INH IH SCH (07:44)
[2018-03-27] MEDS ORDERED: THEOPHYLLINE ANHYDROUS 100 MG TAB.SR.12H PO SCH (09:00)
[2018-03-27] MEDS ORDERED: PREDNISONE 20 MG TABLET PO SCH (09:00)
[2018-03-27] MEDS: BALSAM PERU/CASTOR OIL 60 GM TUBE TP SCH (09:00)
[2018-03-27] MEDS: MEGESTROL 400 MG/10 ML UDCUP PO SCH (09:45)
[2018-03-27] MEDS: ENOXAPARIN SODIUM 30 MG/0.3 ML SQ SCH (09:46)
[2018-03-27] MEDS: ATENOLOL 50 MG TABLET PO SCH (09:47)
[2018-03-27] MEDS: AMLODIPINE BESYLATE 5 MG TAB PO SCH (09:48)
[2018-03-27] MEDS: PANTOPRAZOLE SODIUM 40 MG TABLET.DR PO SCH (09:48)
[2018-03-27 11:00] VITALS: BP 114/70
[2018-03-27] MEDS: LEVOFLOXACIN 500 MG/D5W 100 ML 100 ML IV SCH (14:55)
[2018-03-27 16:00] VITALS: BP 121/65
[2018-03-27] MEDS: DRONABINOL 2.5 MG CAP PO SCH (17:45)
== END 2018-03-27 18:30 | DRG 193 ==
LOC: EDH 12:04 → EDHIP 13:16 → 4CH 14:36
PROVIDERS: ADMIT Family Medicine; ATTEND Family Medicine
DX: J18.9 Pneumonia, unspecified organism (principal); J96.21 Acute and chronic respiratory failure with hypoxia; E43 Unspecified severe protein-calorie malnutrition; L89.152 Pressure ulcer of sacral region, stage 2; J44.0 Chronic obstructive pulmonary disease with (acute) lower respiratory infection; L89.90 Pressure ulcer of unspecified site, unspecified stage; J84.10 Pulmonary fibrosis, unspecified; J44.1 Chronic obstructive pulmonary disease with (acute) exacerbation; R13.10 Dysphagia, unspecified; Z99.81 Dependence on supplemental oxygen; R64 Cachexia; J98.11 Atelectasis; Z68.1 Body mass index [BMI] 19.9 or less, adult; F41.9 Anxiety disorder, unspecified; K29.70 Gastritis, unspecified, without bleeding; K52.9 Noninfective gastroenteritis and colitis, unspecified; N20.0 Calculus of kidney; Y95 Nosocomial condition; Z87.01 Personal history of pneumonia (recurrent); Z90.49 Acquired absence of other specified parts of digestive tract
CPT/HCPCS: 36415; 71045; 71275; 74018; 74176; 80048; 80053; 82150; 82550; 82553; 83605; 83690; 83735; 83880; 84100; 84132; 84484; 85025; 85027; 85610; 85730; 87071; 87077; 87186; 87205; 87338; 92610; 93005; 94640; 94664; 94667; 94668; 97039; C9113; J1450; J1650; J1940; J1956; J2920; J2930; J3480; J3490; J7030; J7608; Q0167; Q9963; Q9967

== ENCOUNTER 2018-04-11 03:15 | Inpatient (IN) | payer MEDICARE ==
[~2018-04-11] VITALS: Ht 152.4 cm; Wt 33.1 kg
[~2018-04-11 03:15] MED LIST changes: -BUDE10.2 IH; -LATA2.5D2 OP; +MEGE400O20 PO; +PRED20TA3 PO
[2018-04-11] MEDS ORDERED: IPRATROPIUM/ALBUTEROL SULFATE 3 ML SOLUTION IH ONE (03:32)
[2018-04-11 03:39] LABS: BASOPHILS % (AUTO) 0.4 % (0.0-5.0); EOSINOPHILS % (AUTO) 0.3 % (0.0-8.0); HEMATOCRIT 38.1 % (36-48); LYMPHOCYTES % (AUTO) 6.1 % (21.0-51.0); MEAN CORPUSCULAR HEMOGLOBIN 28.8 pg (27.0-33.0); MEAN CORPUSCULAR HGB CONC 32.3 g/dL (32.0-36.0); MONOCYTES % (AUTO) 3.2 % (3.0-13.0); PLATELET COUNT (AUTO) 328 K/uL (130-400); RED BLOOD CELL COUNT(AUTO) 4.29 MIL/uL (4.00-5.50); RED CELL DISTRIBUTION WIDTH 17.9 % (11.0-15.5); WHITE BLOOD COUNT (AUTO) 15.7 K/uL (4.8-10.8)
[2018-04-11 03:39] LABS: APPEARANCE,URINE Clear (CLEAR); BILIRUBIN,URINE Negative (NEGATIVE); COLOR,URINE Yellow (YELLOW); GLUCOSE, URINE (UA) 500 mg/dL (NEGATIVE); KETONES,URINE Negative (NEGATIVE); LEUKOCYTE ESTERASE ,URINE Negative (NEGATIVE); NITRATE,URINE Negative (NEGATIVE); OCCULT BLOOD,URINE Moderate (NEGATIVE); PH,URINE 6.5 (5.0-8.0); PROTEIN,URINE POS 1+ (NEGATIVE); UROBILINOGEN,URINE 0.2 mg/dL (0.2-1.0)
[2018-04-11 04:00] LABS: INR 0.92 (0.85-1.15); PARTIAL THROMBOPLASTIN TIME 27.5 SEC (26.3-35.5); PROTHROMBIN TIME 9.7 SEC (9.6-11.6)
[2018-04-11 04:02] LABS: BACTERIA,URINE Rare /HPF (None Seen); SQUAMOUS EPITHELIAL CELL,UR Moderate /HPF (0-2)
[2018-04-11 04:08] LABS: B-TYPE NATRIURETIC PEPTIDE 1090 pg/mL (0-100)
[2018-04-11 04:09] LABS: ALBUMIN 2.4 g/dL (3.5-5.0); BILIRUBIN,TOTAL 0.4 mg/dL (0.2-1.0); CREATINE KINASE MB 1.6 ng/mL (0.5-3.6); CREATININE 0.5 mg/dL (0.5-1.5); TOTAL PROTEIN, SERUM 6.7 g/dL (6.0-8.3)
[2018-04-11 04:11] LABS: POTASSIUM 2.8 mmol/L (3.5-5.1)
[2018-04-11] MEDS ORDERED: POTASSIUM BICARB/CIT AC 25 MEQ TABLET.EFF ONE (04:17)
[2018-04-11] MEDS ORDERED: METHYLPREDNISOLONE SOD SUCC 125MG/2ML VIAL ONE (04:56)
[2018-04-11] MEDS ORDERED: IPRATROPIUM/ALBUTEROL SULFATE 3 ML SOLUTION IH SCH (06:00)
[2018-04-11] MEDS ORDERED: CLONIDINE HCL 0.1 MG TABLET PO PRN (06:15)
[2018-04-11] MEDS ORDERED: ONDANSETRON HCL MDV 20ML 2 MG/ML VIAL IVP PRN (06:15)
[2018-04-11] MEDS ORDERED: POTASSIUM CHLORIDE 10% ELIXIR 20 MEQ/15 ML UDCUP PO PRN (06:15)
[2018-04-11] MEDS ORDERED: GUAIFENESIN-DM 200/20 MG 10 ML PO PRN (06:15)
[2018-04-11] MEDS ORDERED: ACETAMINOPHEN 325 MG TAB PO PRN ×2 (06:15)
[2018-04-11] MEDS: LEVOFLOXACIN 500 MG/D5W 100 ML 100 ML IV SCH (06:20)
[2018-04-11 06:31] VITALS: BP 151/72
[2018-04-11 06:47] LABS: BASOPHILS % (AUTO) 0.5 % (0.0-5.0); MEAN CORPUSCULAR HEMOGLOBIN 28.6 pg (27.0-33.0); MEAN CORPUSCULAR HGB CONC 31.9 g/dL (32.0-36.0); MEAN CORPUSCULAR VOLUME 89.7 fL (79-99); MONOCYTES % (AUTO) 2.7 % (3.0-13.0); NEUTROPHILS % (AUTO) 92.8 % (40.0-77.0); PLATELET COUNT (AUTO) 281 K/uL (130-400); RED CELL DISTRIBUTION WIDTH 18.1 % (11.0-15.5); WHITE BLOOD COUNT (AUTO) 12.9 K/uL (4.8-10.8)
[2018-04-11] MEDS ORDERED: LEVO750T46 PO (07:00)
[2018-04-11] MEDS ORDERED: LEVA1.2514 IH (07:00)
[2018-04-11] MEDS ORDERED: ATEN25TA PO (07:00)
[2018-04-11] MEDS ORDERED: BUDE0.5A3 IH (07:00)
[2018-04-11] MEDS ORDERED: BENZ-51 PO (07:00)
[2018-04-11] MEDS ORDERED: PANT40TA25 PO (07:00)
[2018-04-11 07:22] LABS: CARBON DIOXIDE 45 mmol/L (21-32); CHLORIDE 103 mmol/L (101-111); CREATINE KINASE MB 1.3 ng/mL (0.5-3.6); CREATINE KINASE, TOTAL 22 U/L (21-232); CREATININE 0.6 mg/dL (0.5-1.5); GLOMERULAR FILTR. RATE CALC 104 mL/min (>60); GLUCOSE,RANDOM 162 mg/dL (70-105); MYOGLOBIN 35 ng/mL (10-92); POTASSIUM 3.2 mmol/L (3.5-5.1); SODIUM SERUM 145 mmol/L (136-145); THYROID STIMULATING HORMONE 1.25 uIU/mL (0.36-3.74); TROPONIN I < 0.04 ng/mL (0.00-0.06); UREA NITROGEN, BLOOD 14 mg/dL (7-18)
[2018-04-11 07:47] VITALS: BP 150/82
[2018-04-11 08:23] LABS: B-TYPE NATRIURETIC PEPTIDE 612 pg/mL (0-100)
[2018-04-11] MEDS ORDERED: BENZONATATE 100 MG CAPSULE PO PRN (09:00)
[2018-04-11] MEDS: IPRATROPIUM/ALBUTEROL SULFATE 3 ML SOLUTION IH SCH ×4 (10:02→22:55)
[2018-04-11] MEDS: BUDESONIDE 0.5 MG/2 ML INH IH SCH ×2 (10:11→18:43)
[2018-04-11] MEDS: FUROSEMIDE 10 MG/ML 2ML VIAL IV SCH (10:31)
[2018-04-11] MEDS: MEGESTROL 400 MG/10 ML UDCUP PO SCH (10:31)
[2018-04-11] MEDS: FAMOTIDINE 20MG TAB 20 MG TAB PO SCH ×2 (10:32→21:06)
[2018-04-11] MEDS: PREDNISONE 20 MG TABLET PO SCH (10:32)
[2018-04-11] MEDS: AMLODIPINE BESYLATE 5 MG TAB PO SCH (10:32)
[2018-04-11] MEDS: POTASSIUM CHLORIDE 20 MEQ ERTAB PO PRN ×3 (10:32→21:07)
[2018-04-11 11:30] VITALS: BP 121/88
[2018-04-11 17:29] VITALS: BP 133/69
[2018-04-11] MEDS: DOXYCYCLINE HYCLATE 100 MG TABLET PO SCH (21:06)
[2018-04-11] MEDS: MAGNESIUM 2GM PREMIX 50ML 50 ML IV SCH (21:06)
[2018-04-11 21:43] VITALS: BP 125/61
[2018-04-11 23:32] LABS: ABG BASE EXCESS 12.6 mmol/L (-2.0-3.0); ABG OXYGEN SATURATION 96.6 % (95.0-99.0); ABG PCO2 63 mmHg (32-45)
[2018-04-12 00:53] VITALS: BP 145/65
[2018-04-12] MEDS: IPRATROPIUM/ALBUTEROL SULFATE 3 ML SOLUTION IH SCH ×6 (01:24→21:56)
[2018-04-12 04:58] VITALS: BP 151/77
[2018-04-12] MEDS: LEVOFLOXACIN 500 MG/D5W 100 ML 100 ML IV SCH (05:22)
[2018-04-12 05:31] LABS: MEAN CORPUSCULAR HEMOGLOBIN 30.2 pg (27.0-33.0); MEAN CORPUSCULAR HGB CONC 33.7 g/dL (32.0-36.0); MEAN CORPUSCULAR VOLUME 89.5 fL (79-99); NUCLEATED RED BLOOD CELLS 0.4 % (0.0-0.19); PLATELET COUNT (AUTO) 288 K/uL (130-400); RED BLOOD CELL COUNT(AUTO) 4.02 MIL/uL (4.00-5.50); RED CELL DISTRIBUTION WIDTH 18.1 % (11.0-15.5); WHITE BLOOD COUNT (AUTO) 13.1 K/uL (4.8-10.8)
[2018-04-12 05:40] LABS: BAND NEUTROPHILS % (MANUAL) 13 % (0-2); LYMPHOCYTES % (MANUAL) 12 % (22-44); MAN.DIFF COMMENT-IMPRESSION MANUAL DIFFERENTIAL; MONOCYTES % (MANUAL) 8 % (2-9); PLATELET MORPHOLOGY COMMENT ADEQUATE; SEGMENTED NEUTROPHILS % 67 % (40-70)
[2018-04-12 05:46] LABS: B-TYPE NATRIURETIC PEPTIDE 326 pg/mL (0-100)
[2018-04-12 05:57] LABS: CREATININE 0.7 mg/dL (0.5-1.5); MAGNESIUM 2.8 mg/dL (1.80-2.40); PHOSPHORUS 2.9 mg/dL (2.5-4.9); POTASSIUM 3.5 mmol/L (3.5-5.1); THYROID STIMULATING HORMONE 2.25 uIU/mL (0.36-3.74)
[2018-04-12] MEDS: BUDESONIDE 0.5 MG/2 ML INH IH SCH ×2 (06:14→19:18)
[2018-04-12] MEDS: PANTOPRAZOLE SODIUM 40 MG TABLET.DR PO SCH (06:36)
[2018-04-12] MEDS: POTASSIUM CHLORIDE 20 MEQ ERTAB PO PRN ×2 (06:37→11:57)
[2018-04-12] MEDS: ATENOLOL 25 MG TABLET PO SCH (06:37)
[2018-04-12 08:03] VITALS: BP 148/81
[2018-04-12] MEDS: DOXYCYCLINE HYCLATE 100 MG TABLET PO SCH ×2 (08:45→20:07)
[2018-04-12] MEDS: PREDNISONE 20 MG TABLET PO SCH (08:45)
[2018-04-12] MEDS: FAMOTIDINE 20MG TAB 20 MG TAB PO SCH ×2 (08:45→20:07)
[2018-04-12] MEDS: FUROSEMIDE 10 MG/ML 2ML VIAL IV SCH (08:45)
[2018-04-12] MEDS: MEGESTROL 400 MG/10 ML UDCUP PO SCH (08:45)
[2018-04-12] MEDS: ENOXAPARIN SODIUM 30 MG/0.3 ML SQ SCH (08:46)
[2018-04-12] MEDS: AMLODIPINE BESYLATE 5 MG TAB PO SCH (08:47)
[2018-04-12] MEDS ORDERED: METHYLPREDNISOLONE SOD SUCC 125MG/2ML VIAL IVP SCH (09:15)
[2018-04-12] MEDS ORDERED: ASPIRIN 81MG TAB.CHEW PO SCH (10:18)
[2018-04-12] MEDS: DEXTROSE 5 % AND 0.9 % NACL 1,000 ML IV SCH (11:45)
[2018-04-12 11:47] VITALS: BP 134/66
[2018-04-12] MEDS: ZOSYN 3.375GM+NS 50ML 50 ML IV SCH ×2 (12:03→20:07)
[2018-04-12 16:00] VITALS: BP 98/56
[2018-04-12] MEDS: METHYLPREDNISOLONE SOD SUCC 125MG/2ML VIAL IVP SCH (16:41)
[2018-04-12 20:17] VITALS: BP 139/73
[2018-04-13] VITALS (7 sets, daily range): BP systolic 115–166; BP diastolic 39–93
[2018-04-13] MEDS: DEXTROSE 5 % AND 0.9 % NACL 1,000 ML IV SCH (00:26)
[2018-04-13] MEDS: METHYLPREDNISOLONE SOD SUCC 125MG/2ML VIAL IVP SCH ×3 (00:26→17:46)
[2018-04-13] MEDS: IPRATROPIUM/ALBUTEROL SULFATE 3 ML SOLUTION IH SCH ×6 (02:17→22:14)
[2018-04-13] MEDS: ZOSYN 3.375GM+NS 50ML 50 ML IV SCH ×3 (05:43→20:58)
[2018-04-13 06:03] LABS: BASOPHILS % (AUTO) 0.5 % (0.0-5.0); HEMATOCRIT 35.7 % (36-48); MEAN CORPUSCULAR HEMOGLOBIN 29.1 pg (27.0-33.0); MEAN CORPUSCULAR HGB CONC 32.2 g/dL (32.0-36.0); MEAN CORPUSCULAR VOLUME 90.5 fL (79-99); MONOCYTES % (AUTO) 3.2 % (3.0-13.0); NEUTROPHILS % (AUTO) 91.3 % (40.0-77.0); PLATELET COUNT (AUTO) 291 K/uL (130-400); RED BLOOD CELL COUNT(AUTO) 3.94 MIL/uL (4.00-5.50); RED CELL DISTRIBUTION WIDTH 18.3 % (11.0-15.5); WHITE BLOOD COUNT (AUTO) 12.9 K/uL (4.8-10.8)
[2018-04-13] MEDS: BUDESONIDE 0.5 MG/2 ML INH IH SCH ×2 (06:05→19:17)
[2018-04-13 06:14] LABS: CREATININE 0.8 mg/dL (0.5-1.5); POTASSIUM 3.1 mmol/L (3.5-5.1)
[2018-04-13 06:43] LABS: B-TYPE NATRIURETIC PEPTIDE 364 pg/mL (0-100)
[2018-04-13] MEDS: PANTOPRAZOLE SODIUM 40 MG TABLET.DR PO SCH (07:45)
[2018-04-13] MEDS: ATENOLOL 25 MG TABLET PO SCH (07:46)
[2018-04-13] MEDS: POTASSIUM CHLORIDE 20 MEQ ERTAB PO PRN ×3 (07:47→12:30)
[2018-04-13] MEDS: DOXYCYCLINE HYCLATE 100 MG TABLET PO SCH ×2 (09:57→20:58)
[2018-04-13] MEDS: AMLODIPINE BESYLATE 5 MG TAB PO SCH (09:57)
[2018-04-13] MEDS: ASPIRIN 81MG TAB.CHEW PO SCH (09:57)
[2018-04-13] MEDS: FAMOTIDINE 20MG TAB 20 MG TAB PO SCH ×2 (09:57→20:58)
[2018-04-13] MEDS: ENOXAPARIN SODIUM 30 MG/0.3 ML SQ SCH (09:58)
[2018-04-13] MEDS: NYSTATIN 100000 UNIT/ML 5ML UDCUP PO SCH ×3 (12:30→20:58)
[2018-04-13] MEDS: MEGESTROL 400 MG/10 ML UDCUP PO SCH (13:10)
[2018-04-13] MEDS ORDERED: HONEY 1 APPL/ML TUBE TP ONE (16:00)
[2018-04-13 23:58] LABS: MAGNESIUM 1.9 mg/dL (1.80-2.40)
[2018-04-14] MEDS: MAGNESIUM 2GM PREMIX 50ML 50 ML IV SCH (01:38)
[2018-04-14] MEDS: METHYLPREDNISOLONE SOD SUCC 125MG/2ML VIAL IVP SCH ×3 (01:38→18:31)
[2018-04-14 03:36] VITALS: BP 138/62
[2018-04-14] MEDS: POTASSIUM CHLORIDE 20MEQ/100ML 100 ML IV PRN (03:44)
[2018-04-14] MEDS: LIDOCAINE HCL-MPF 1% 2ML VIAL IJ PRN (03:44)
[2018-04-14 05:25] LABS: HEMATOCRIT 34.8 % (36-48); MEAN CORPUSCULAR HEMOGLOBIN 29.6 pg (27.0-33.0); MEAN CORPUSCULAR HGB CONC 32.6 g/dL (32.0-36.0); PLATELET COUNT (AUTO) 288 K/uL (130-400); RED BLOOD CELL COUNT(AUTO) 3.82 MIL/uL (4.00-5.50); RED CELL DISTRIBUTION WIDTH 17.9 % (11.0-15.5); WHITE BLOOD COUNT (AUTO) 13.6 K/uL (4.8-10.8)
[2018-04-14 05:44] LABS: CREATININE 0.8 mg/dL (0.5-1.5); MAGNESIUM 3.1 mg/dL (1.80-2.40); POTASSIUM 3.6 mmol/L (3.5-5.1)
[2018-04-14] MEDS: IPRATROPIUM/ALBUTEROL SULFATE 3 ML SOLUTION IH SCH ×5 (06:00→21:37)
[2018-04-14] MEDS: BUDESONIDE 0.5 MG/2 ML INH IH SCH (06:17)
[2018-04-14] MEDS: ATENOLOL 25 MG TABLET PO SCH (06:28)
[2018-04-14] MEDS: PANTOPRAZOLE SODIUM 40 MG TABLET.DR PO SCH (06:28)
[2018-04-14] MEDS: ZOSYN 3.375GM+NS 50ML 50 ML IV SCH ×3 (06:29→20:19)
[2018-04-14 07:55] VITALS: BP 132/61
[2018-04-14] MEDS ORDERED: MEGESTROL 400 MG/10 ML UDCUP PO SCH (09:00)
[2018-04-14] MEDS ORDERED: DEXTROSE 5%-WATER 1,000 ML IV SCH (10:13)
[2018-04-14] MEDS: NYSTATIN 100000 UNIT/ML 5ML UDCUP PO SCH ×4 (12:03→20:19)
[2018-04-14] MEDS: DOXYCYCLINE HYCLATE 100 MG TABLET PO SCH ×2 (12:03→20:19)
[2018-04-14] MEDS: AMLODIPINE BESYLATE 5 MG TAB PO SCH (12:03)
[2018-04-14] MEDS: MEGESTROL 400 MG/10 ML UDCUP PO SCH (12:03)
[2018-04-14] MEDS: HONEY 1 APPL/ML TUBE TP SCH (12:04)
[2018-04-14] MEDS: ASPIRIN 81MG TAB.CHEW PO SCH (12:04)
[2018-04-14] MEDS: ENOXAPARIN SODIUM 30 MG/0.3 ML SQ SCH (12:05)
[2018-04-14] MEDS: FAMOTIDINE 20MG TAB 20 MG TAB PO SCH ×2 (12:05→20:19)
[2018-04-14 12:29] VITALS: BP 143/64
[2018-04-14 16:46] VITALS: BP 142/76
[2018-04-14] MEDS: POTASSIUM CHLORIDE 20 MEQ ERTAB PO PRN (18:32)
[2018-04-14 19:19] VITALS: BP 127/65
[2018-04-14 23:59] VITALS: BP 130/71
[2018-04-15] MEDS: METHYLPREDNISOLONE SOD SUCC 125MG/2ML VIAL IVP SCH ×2 (00:50→08:22)
[2018-04-15] MEDS: IPRATROPIUM/ALBUTEROL SULFATE 3 ML SOLUTION IH SCH ×6 (01:56→22:38)
[2018-04-15 04:10] VITALS: BP 144/74
[2018-04-15] MEDS: ZOSYN 3.375GM+NS 50ML 50 ML IV SCH ×2 (05:01→16:30)
[2018-04-15 05:09] LABS: HEMATOCRIT 36.9 % (36-48); MEAN CORPUSCULAR HGB CONC 31.8 g/dL (32.0-36.0); MEAN CORPUSCULAR VOLUME 91.1 fL (79-99); NUCLEATED RED BLOOD CELLS 0.1 % (0.0-0.19); PLATELET COUNT (AUTO) 305 K/uL (130-400); RED BLOOD CELL COUNT(AUTO) 4.05 MIL/uL (4.00-5.50); RED CELL DISTRIBUTION WIDTH 17.5 % (11.0-15.5); WHITE BLOOD COUNT (AUTO) 14.1 K/uL (4.8-10.8)
[2018-04-15 05:29] LABS: CREATININE 0.7 mg/dL (0.5-1.5); POTASSIUM 3.3 mmol/L (3.5-5.1)
[2018-04-15] MEDS: ATENOLOL 25 MG TABLET PO SCH (06:56)
[2018-04-15] MEDS: POTASSIUM CHLORIDE 20 MEQ ERTAB PO PRN (06:58)
[2018-04-15] MEDS: BUDESONIDE 0.5 MG/2 ML INH IH SCH ×2 (07:26→18:29)
[2018-04-15 07:49] VITALS: BP 151/73
[2018-04-15] MEDS: POTASSIUM CHLORIDE 20MEQ/100ML 100 ML IV PRN (08:22)
[2018-04-15] MEDS: ENOXAPARIN SODIUM 30 MG/0.3 ML SQ SCH (08:22)
[2018-04-15] MEDS: LIDOCAINE HCL-MPF 1% 2ML VIAL IJ PRN (08:22)
[2018-04-15] MEDS: NYSTATIN 100000 UNIT/ML 5ML UDCUP PO SCH ×4 (08:22→20:12)
[2018-04-15] MEDS: MEGESTROL 400 MG/10 ML UDCUP PO SCH (08:23)
[2018-04-15] MEDS: FAMOTIDINE 20MG TAB 20 MG TAB PO SCH ×2 (08:23→20:12)
[2018-04-15] MEDS: DOXYCYCLINE HYCLATE 100 MG TABLET PO SCH ×2 (08:23→20:12)
[2018-04-15] MEDS: ASPIRIN 81MG TAB.CHEW PO SCH (08:23)
[2018-04-15] MEDS: AMLODIPINE BESYLATE 5 MG TAB PO SCH (08:23)
[2018-04-15] MEDS: PANTOPRAZOLE SODIUM 40 MG TABLET.DR PO SCH (08:24)
[2018-04-15] MEDS: HONEY 1 APPL/ML TUBE TP SCH (09:00)
[2018-04-15 11:37] VITALS: BP 134/69
[2018-04-15 16:15] VITALS: BP 139/72
[2018-04-15 19:25] VITALS: BP 142/68
[2018-04-15] MEDS: METHYLPREDNISOLONE SOD SUCC 40MG/ML 1ML IVP SCH (20:12)
[2018-04-15 23:32] VITALS: BP 153/73
[2018-04-16] MEDS: ZOSYN 3.375GM+NS 50ML 50 ML IV SCH ×5 (01:00→20:53)
[2018-04-16] MEDS: IPRATROPIUM/ALBUTEROL SULFATE 3 ML SOLUTION IH SCH ×6 (02:00→22:00)
[2018-04-16 03:23] VITALS: BP 145/74
[2018-04-16 05:15] LABS: HEMATOCRIT 34.8 % (36-48); MEAN CORPUSCULAR HEMOGLOBIN 29.7 pg (27.0-33.0); MEAN CORPUSCULAR HGB CONC 33.2 g/dL (32.0-36.0); MEAN CORPUSCULAR VOLUME 89.5 fL (79-99); NUCLEATED RED BLOOD CELLS 0.1 % (0.0-0.19); PLATELET COUNT (AUTO) 317 K/uL (130-400); RED BLOOD CELL COUNT(AUTO) 3.88 MIL/uL (4.00-5.50); RED CELL DISTRIBUTION WIDTH 17.8 % (11.0-15.5); WHITE BLOOD COUNT (AUTO) 14.2 K/uL (4.8-10.8)
[2018-04-16 05:23] LABS: CREATININE 0.7 mg/dL (0.5-1.5); POTASSIUM 3.8 mmol/L (3.5-5.1)
[2018-04-16] MEDS: BUDESONIDE 0.5 MG/2 ML INH IH SCH ×2 (06:04→19:13)
[2018-04-16] MEDS: ATENOLOL 25 MG TABLET PO SCH (06:45)
[2018-04-16] MEDS: PANTOPRAZOLE SODIUM 40 MG TABLET.DR PO SCH (06:45)
[2018-04-16 07:59] VITALS: BP 137/78
[2018-04-16] MEDS: METHYLPREDNISOLONE SOD SUCC 40MG/ML 1ML IVP SCH ×2 (09:18→20:53)
[2018-04-16] MEDS: NYSTATIN 100000 UNIT/ML 5ML UDCUP PO SCH ×4 (09:18→20:53)
[2018-04-16] MEDS: ENOXAPARIN SODIUM 30 MG/0.3 ML SQ SCH (09:18)
[2018-04-16] MEDS: AMLODIPINE BESYLATE 5 MG TAB PO SCH (09:19)
[2018-04-16] MEDS: ASPIRIN 81MG TAB.CHEW PO SCH (09:19)
[2018-04-16] MEDS: DOXYCYCLINE HYCLATE 100 MG TABLET PO SCH ×2 (09:19→20:53)
[2018-04-16] MEDS: MEGESTROL 400 MG/10 ML UDCUP PO SCH (09:19)
[2018-04-16] MEDS: FAMOTIDINE 20MG TAB 20 MG TAB PO SCH ×2 (09:19→20:53)
[2018-04-16] MEDS: HONEY 1 APPL/ML TUBE TP SCH (09:29)
[2018-04-16 11:39] VITALS: BP 142/64
[2018-04-16 16:47] VITALS: BP 125/56
[2018-04-16 20:05] VITALS: BP 105/58
[2018-04-17] VITALS (7 sets, daily range): BP systolic 110–145; BP diastolic 44–81
[2018-04-17] MEDS: IPRATROPIUM/ALBUTEROL SULFATE 3 ML SOLUTION IH SCH ×6 (01:32→22:47)
[2018-04-17] MEDS: ZOSYN 3.375GM+NS 50ML 50 ML IV SCH ×3 (05:31→21:11)
[2018-04-17] MEDS: BUDESONIDE 0.5 MG/2 ML INH IH SCH ×2 (06:05→20:02)
[2018-04-17] MEDS: ATENOLOL 25 MG TABLET PO SCH (06:39)
[2018-04-17] MEDS: PANTOPRAZOLE SODIUM 40 MG TABLET.DR PO SCH (06:39)
[2018-04-17] MEDS: ASPIRIN 81MG TAB.CHEW PO SCH (09:54)
[2018-04-17] MEDS: DOXYCYCLINE HYCLATE 100 MG TABLET PO SCH ×2 (09:54→21:10)
[2018-04-17] MEDS: METHYLPREDNISOLONE SOD SUCC 40MG/ML 1ML IVP SCH ×2 (09:54→21:11)
[2018-04-17] MEDS: FAMOTIDINE 20MG TAB 20 MG TAB PO SCH ×2 (09:54→21:10)
[2018-04-17] MEDS: AMLODIPINE BESYLATE 5 MG TAB PO SCH (09:54)
[2018-04-17] MEDS: MEGESTROL 400 MG/10 ML UDCUP PO SCH (09:54)
[2018-04-17] MEDS: ENOXAPARIN SODIUM 30 MG/0.3 ML SQ SCH (09:56)
[2018-04-17] MEDS: HONEY 1 APPL/ML TUBE TP SCH (09:57)
[2018-04-17] MEDS: NYSTATIN 100000 UNIT/ML 5ML UDCUP PO SCH ×4 (09:58→21:10)
[2018-04-18] MEDS: IPRATROPIUM/ALBUTEROL SULFATE 3 ML SOLUTION IH SCH ×6 (01:40→22:40)
[2018-04-18 03:50] VITALS: BP 133/62
[2018-04-18] MEDS: ZOSYN 3.375GM+NS 50ML 50 ML IV SCH ×3 (05:31→20:46)
[2018-04-18 06:02] LABS: HEMATOCRIT 36.5 % (36-48); MEAN CORPUSCULAR HEMOGLOBIN 29.6 pg (27.0-33.0); MEAN CORPUSCULAR HGB CONC 33.1 g/dL (32.0-36.0); MEAN CORPUSCULAR VOLUME 89.5 fL (79-99); NUCLEATED RED BLOOD CELLS 0.1 % (0.0-0.19); PLATELET COUNT (AUTO) 360 K/uL (130-400); RED BLOOD CELL COUNT(AUTO) 4.08 MIL/uL (4.00-5.50); RED CELL DISTRIBUTION WIDTH 17.4 % (11.0-15.5); WHITE BLOOD COUNT (AUTO) 17.1 K/uL (4.8-10.8)
[2018-04-18 06:11] LABS: CREATININE 0.7 mg/dL (0.5-1.5)
[2018-04-18 06:12] LABS: POTASSIUM 2.8 mmol/L (3.5-5.1)
[2018-04-18] MEDS: BUDESONIDE 0.5 MG/2 ML INH IH SCH ×2 (06:26→20:44)
[2018-04-18] MEDS: POTASSIUM CHLORIDE 20 MEQ ERTAB PO PRN (06:30)
[2018-04-18] MEDS: PANTOPRAZOLE SODIUM 40 MG TABLET.DR PO SCH (07:30)
[2018-04-18 07:57] VITALS: BP 147/80
[2018-04-18] MEDS: HONEY 1 APPL/ML TUBE TP SCH (09:00)
[2018-04-18] MEDS: ENOXAPARIN SODIUM 30 MG/0.3 ML SQ SCH (09:00)
[2018-04-18] MEDS: AMLODIPINE BESYLATE 5 MG TAB PO SCH (09:56)
[2018-04-18] MEDS: DOXYCYCLINE HYCLATE 100 MG TABLET PO SCH ×2 (09:56→20:44)
[2018-04-18] MEDS: FAMOTIDINE 20MG TAB 20 MG TAB PO SCH ×2 (09:56→20:44)
[2018-04-18] MEDS: ASPIRIN 81MG TAB.CHEW PO SCH (09:56)
[2018-04-18] MEDS: METHYLPREDNISOLONE SOD SUCC 40MG/ML 1ML IVP SCH ×2 (09:57→20:44)
[2018-04-18] MEDS: LIDOCAINE HCL-MPF 1% 2ML VIAL IJ PRN ×2 (10:07→20:04)
[2018-04-18] MEDS: POTASSIUM CHLORIDE 20MEQ/100ML 100 ML IV PRN ×2 (10:07→20:04)
[2018-04-18] MEDS: NYSTATIN 100000 UNIT/ML 5ML UDCUP PO SCH ×4 (10:09→20:46)
[2018-04-18] MEDS: ATENOLOL 25 MG TABLET PO SCH (10:09)
[2018-04-18] MEDS: MEGESTROL 400 MG/10 ML UDCUP PO SCH (10:09)
[2018-04-18 12:13] VITALS: BP 122/68
[2018-04-18 16:17] VITALS: BP 130/67
[2018-04-18 19:55] VITALS: BP 116/61
[2018-04-18] MEDS: POTASSIUM CHLORIDE 20 MEQ ERTAB PO SCH (20:43)
[2018-04-18 23:55] VITALS: BP 119/68
[2018-04-19] MEDS: IPRATROPIUM/ALBUTEROL SULFATE 3 ML SOLUTION IH SCH ×6 (02:13→22:45)
[2018-04-19 03:45] VITALS: BP 130/59
[2018-04-19] MEDS: ZOSYN 3.375GM+NS 50ML 50 ML IV SCH ×3 (04:16→20:35)
[2018-04-19] MEDS: BUDESONIDE 0.5 MG/2 ML INH IH SCH (05:56)
[2018-04-19 06:25] LABS: CREATININE 0.5 mg/dL (0.5-1.5); POTASSIUM 4.9 mmol/L (3.5-5.1)
[2018-04-19] MEDS: PANTOPRAZOLE SODIUM 40 MG TABLET.DR PO SCH (08:53)
[2018-04-19] MEDS: DOXYCYCLINE HYCLATE 100 MG TABLET PO SCH ×2 (08:53→20:35)
[2018-04-19] MEDS: METHYLPREDNISOLONE SOD SUCC 40MG/ML 1ML IVP SCH ×2 (08:53→20:35)
[2018-04-19] MEDS: FAMOTIDINE 20MG TAB 20 MG TAB PO SCH ×2 (08:53→20:35)
[2018-04-19] MEDS: AMLODIPINE BESYLATE 5 MG TAB PO SCH (08:53)
[2018-04-19] MEDS: ASPIRIN 81MG TAB.CHEW PO SCH (08:53)
[2018-04-19] MEDS: ATENOLOL 25 MG TABLET PO SCH (08:54)
[2018-04-19] MEDS: POTASSIUM CHLORIDE 20 MEQ ERTAB PO SCH ×2 (08:55→20:36)
[2018-04-19 08:56] VITALS: BP 151/86
[2018-04-19] MEDS: NYSTATIN 100000 UNIT/ML 5ML UDCUP PO SCH ×4 (08:59→20:35)
[2018-04-19] MEDS: ENOXAPARIN SODIUM 30 MG/0.3 ML SQ SCH (08:59)
[2018-04-19] MEDS: MEGESTROL 400 MG/10 ML UDCUP PO SCH (08:59)
[2018-04-19] MEDS: HONEY 1 APPL/ML TUBE TP SCH (09:00)
[2018-04-19 11:22] VITALS: BP 126/75
[2018-04-19 16:02] VITALS: BP 117/55
[2018-04-19 20:15] VITALS: BP 134/65
[2018-04-19 23:55] VITALS: BP 119/65
[2018-04-20] MEDS: IPRATROPIUM/ALBUTEROL SULFATE 3 ML SOLUTION IH SCH ×6 (02:27→23:50)
[2018-04-20 03:05] VITALS: BP 138/70
[2018-04-20] MEDS: ZOSYN 3.375GM+NS 50ML 50 ML IV SCH ×3 (04:52→21:52)
[2018-04-20] MEDS: BUDESONIDE 0.5 MG/2 ML INH IH SCH (06:25)
[2018-04-20] MEDS: ATENOLOL 25 MG TABLET PO SCH (06:52)
[2018-04-20] MEDS: PANTOPRAZOLE SODIUM 40 MG TABLET.DR PO SCH (06:52)
[2018-04-20 07:41] VITALS: BP 134/66
[2018-04-20] MEDS: NYSTATIN 100000 UNIT/ML 5ML UDCUP PO SCH ×4 (09:00→21:52)
[2018-04-20] MEDS: HONEY 1 APPL/ML TUBE TP SCH (09:00)
[2018-04-20] MEDS: POTASSIUM CHLORIDE 20 MEQ ERTAB PO SCH ×2 (09:00→21:00)
[2018-04-20] MEDS: DOXYCYCLINE HYCLATE 100 MG TABLET PO SCH ×2 (09:53→21:52)
[2018-04-20] MEDS: ASPIRIN 81MG TAB.CHEW PO SCH (09:53)
[2018-04-20] MEDS: AMLODIPINE BESYLATE 5 MG TAB PO SCH (09:54)
[2018-04-20] MEDS: FAMOTIDINE 20MG TAB 20 MG TAB PO SCH ×2 (09:54→21:52)
[2018-04-20] MEDS: ENOXAPARIN SODIUM 30 MG/0.3 ML SQ SCH (09:55)
[2018-04-20] MEDS: MEGESTROL 400 MG/10 ML UDCUP PO SCH (09:55)
[2018-04-20] MEDS: METHYLPREDNISOLONE SOD SUCC 40MG/ML 1ML IVP SCH ×2 (09:55→21:52)
[2018-04-20 11:15] VITALS: BP 143/77
[2018-04-20 16:32] VITALS: BP 127/62
[2018-04-20] MEDS: FLUCONAZOLE 100 MG TAB PO SCH (17:57)
[2018-04-20 19:20] VITALS: BP 126/74
[2018-04-21 00:30] VITALS: BP 137/71
[2018-04-21 04:40] VITALS: BP 126/64
[2018-04-21] MEDS: ZOSYN 3.375GM+NS 50ML 50 ML IV SCH ×2 (05:35→15:17)
[2018-04-21] MEDS: IPRATROPIUM/ALBUTEROL SULFATE 3 ML SOLUTION IH SCH ×3 (05:55→17:28)
[2018-04-21] MEDS: BUDESONIDE 0.5 MG/2 ML INH IH SCH ×2 (05:55→17:28)
[2018-04-21] MEDS: PANTOPRAZOLE SODIUM 40 MG TABLET.DR PO SCH (06:32)
[2018-04-21] MEDS: ATENOLOL 25 MG TABLET PO SCH (06:32)
[2018-04-21 08:13] VITALS: BP 138/69
[2018-04-21] MEDS: ENOXAPARIN SODIUM 30 MG/0.3 ML SQ SCH ×2 (09:00→09:28)
[2018-04-21] MEDS: HONEY 1 APPL/ML TUBE TP SCH (09:00)
[2018-04-21] MEDS: ASPIRIN 81MG TAB.CHEW PO SCH (09:27)
[2018-04-21] MEDS: POTASSIUM CHLORIDE 20 MEQ ERTAB PO SCH (09:27)
[2018-04-21] MEDS: DOXYCYCLINE HYCLATE 100 MG TABLET PO SCH (09:27)
[2018-04-21] MEDS: MEGESTROL 400 MG/10 ML UDCUP PO SCH (09:27)
[2018-04-21] MEDS: FAMOTIDINE 20MG TAB 20 MG TAB PO SCH (09:27)
[2018-04-21] MEDS: AMLODIPINE BESYLATE 5 MG TAB PO SCH (09:27)
[2018-04-21] MEDS: NYSTATIN 100000 UNIT/ML 5ML UDCUP PO SCH ×3 (09:27→17:00)
[2018-04-21] MEDS: METHYLPREDNISOLONE SOD SUCC 40MG/ML 1ML IVP SCH (09:28)
[2018-04-21 12:00] VITALS: BP 116/63
[2018-04-21] MEDS: FLUCONAZOLE 100 MG TAB PO SCH (15:17)
[2018-04-21 16:00] VITALS: BP 128/58
== END 2018-04-21 21:07 | DRG 871 ==
LOC: EDH 03:15 → OBSVTOIN 04:54 → EDHIP 04:54 → 4BH 05:35
PROVIDERS: ADMIT Internal Medicine; ATTEND Internal Medicine
DX: A41.9 Sepsis, unspecified organism (principal); J18.9 Pneumonia, unspecified organism; E43 Unspecified severe protein-calorie malnutrition; J96.21 Acute and chronic respiratory failure with hypoxia; N18.6 End stage renal disease; J96.22 Acute and chronic respiratory failure with hypercapnia; I13.2 Hypertensive heart and chronic kidney disease with heart failure and with stage 5 chronic kidney disease, or end stage renal disease; B37.0 Candidal stomatitis; E87.0 Hyperosmolality and hypernatremia; J44.0 Chronic obstructive pulmonary disease with (acute) lower respiratory infection; J44.1 Chronic obstructive pulmonary disease with (acute) exacerbation; R64 Cachexia; Z68.1 Body mass index [BMI] 19.9 or less, adult; L89.152 Pressure ulcer of sacral region, stage 2; E86.0 Dehydration; R91.1 Solitary pulmonary nodule; R33.9 Retention of urine, unspecified; I50.9 Heart failure, unspecified; Y95 Nosocomial condition; Z90.49 Acquired absence of other specified parts of digestive tract; Z99.81 Dependence on supplemental oxygen
CPT/HCPCS: 36415; 36600; 71045; 76705; 80048; 80053; 81001; 82550; 82553; 82803; 82948; 83735; 83874; 83880; 84100; 84132; 84443; 84484; 85025; 85027; 85610; 85730; 93005; 93970; 94640; 94664; 97039; J1650; J1940; J1956; J2543; J2920; J2930; J3475; J3480; J3490; J7042

== ENCOUNTER → 2018-05-08 | Day surgery (SDC) | payer OTHER ==
[2018-05-08] VITALS (10 sets, daily range): BP systolic 95–160; BP diastolic 49–76
[~2018-05-08] VITALS: Ht 152.4 cm; Wt 32.7 kg
[~2018-05-08] MED LIST changes: +ACET325C PO; +AMIT25TA9 PO; +ASCO500T10 PO; +ASPI-555 PO; +ATEN25TA PO; -ATEN50TA PO; +BENZ-51 PO; +BUDE0.5A3 IH; +CHLO473M2 MM; +CLON0.1T PO; +CLOT15CR62 TP; +COLL30OI TP; +DARB60DI SQ; +ENOX30DI5 SQ; +FAMO20VI5 IV; +FENT25PAT TD; +FENT50VI IJ; +FLUC200T8 PO; +GUAI100S13 PO; +INSREG SQ; +IPRA0.2S54 IH; +ISOVUE-300 100 ML VIAL IV ONE; +LEVA0.6312 IH; +LEVA1.2514 IH; +LEVO750T46 PO; +LIDOCAINE HCL 2% 20ML ONE; +LOPE2CAP PO; +LORA2VIA8 IJ; +MAGN30OR PO; +MERO500V IV; +METH40VI31 IV; +MINE60OI TP; +NITR0.4T SL; +NORE8PLA12 IV; +NOREPINEPHRINE BITARTRATE 8 MG in DEXTROSE 5%-WATER 250 ML IV SCH; +ONDA4VIA30 IJ; +PANT40TA25 PO; +PROPOFOL 1000 MG/100 ML 100 ML IV PRN; +PROT946L PO; +SEVE800T7 PO; +SODIUM BICARB 50MEQ 50ML VIAL ONE; +TRAM50TA4 PO; +[UNRECOGNIZED DRUG - CODE] IV; +[UNRECOGNIZED DRUG - CODE] IV; +[UNRECOGNIZED DRUG - CODE] IV; +[UNRECOGNIZED DRUG - CODE] IV; +[UNRECOGNIZED DRUG - OTHER] IJ
== END ==
LOC: CLH 11:49
PROVIDERS: ATTEND Family Medicine
DX: K80.10 Calculus of gallbladder with chronic cholecystitis without obstruction (principal); J44.9 Chronic obstructive pulmonary disease, unspecified; I10 Essential (primary) hypertension; F41.9 Anxiety disorder, unspecified; J96.10 Chronic respiratory failure, unspecified whether with hypoxia or hypercapnia; E43 Unspecified severe protein-calorie malnutrition
CPT/HCPCS: 10030; 47490; 49083 ×2; 87070; 94002; C1729; C1769; J1644; J3490 ×2; Q9967

== ENCOUNTER 2018-05-14 11:39 | Inpatient (IN) | payer MEDICARE ==
[~2018-05-14] VITALS: Ht 162.6 cm; Wt 48.9 kg
[2018-05-14] VITALS (16 sets, daily range): BP systolic 104–154; BP diastolic 39–60
[~2018-05-14 11:39] MED LIST changes: -ACET325C PO; -AMIT25TA9 PO; -ASCO500T10 PO; -ASPI-555 PO; -CHLO473M2 MM; -CLON0.1T PO; -CLOT15CR62 TP; -COLL30OI TP; -DARB60DI SQ; -ENOX30DI5 SQ; -FAMO20VI5 IV; -FENT25PAT TD; -FENT50VI IJ; -FLUC200T8 PO; -GUAI100S13 PO; -INSREG SQ; -IPRA0.2S54 IH; -ISOVUE-300 100 ML VIAL IV ONE; -LEVA0.6312 IH; -LIDOCAINE HCL 2% 20ML ONE; -LOPE2CAP PO; -LORA2VIA8 IJ; -MAGN30OR PO; -MERO500V IV; -METH40VI31 IV; -MINE60OI TP; -NITR0.4T SL; -NORE8PLA12 IV; -NOREPINEPHRINE BITARTRATE 8 MG in DEXTROSE 5%-WATER 250 ML IV SCH; -ONDA4VIA30 IJ; -PROPOFOL 1000 MG/100 ML 100 ML IV PRN; -PROT946L PO; -SEVE800T7 PO; -SODIUM BICARB 50MEQ 50ML VIAL ONE; -TRAM50TA4 PO; -[UNRECOGNIZED DRUG - CODE] IV; -[UNRECOGNIZED DRUG - CODE] IV; -[UNRECOGNIZED DRUG - CODE] IV; -[UNRECOGNIZED DRUG - CODE] IV; -[UNRECOGNIZED DRUG - OTHER] IJ
[2018-05-14] MEDS ORDERED: ISOVUE-300 100 ML VIAL IV ONE (13:04)
[2018-05-14] MEDS ORDERED: LIDOCAINE HCL 2% 20ML ONE (13:05)
[2018-05-14 17:58] LABS: BILIRUBIN,TOTAL 5.2 mg/dL (0.2-1.0)
[2018-05-14 18:29] LABS: TOTAL VOLUME,BODY FLUID 1000 mL
[2018-05-14] MEDS ORDERED: FENTANYL 2500MCG+NS 250ML 250 ML IV PRN (19:15)
[2018-05-14 19:37] LABS: ABG BASE EXCESS -6.2 mmol/L (-2.0-3.0); ABG HCO3 17.1 mmol/L (21.0-28.0); ABG OXYGEN SATURATION 95.4 % (95.0-99.0); ABG PCO2 27 mmHg (32-45)
[2018-05-14 19:56] LABS: APPEARANCE BODY FLUID CLOUDY (CLEAR); COLOR,BODY FLUID BROWN (LT YELLOW); SPECIMENTYPE,BODY FLUID PERITONEAL
[2018-05-14 19:59] LABS: BODY FLUID RBC 17875 /cu. mm.
[2018-05-14] MEDS: NOREPINEPHRINE 4MG/NS 250ML 250 ML IV SCH (20:18)
[2018-05-14 20:23] LABS: BODY FLUID WBC 5061 /cu. mm.
[2018-05-15] VITALS (39 sets, daily range): BP systolic 97–133; BP diastolic 38–68
[2018-05-15] MEDS ORDERED: ASPI-555 PO (02:22)
[2018-05-15] MEDS ORDERED: MAGN30OR PO (02:22)
[2018-05-15] MEDS ORDERED: [UNRECOGNIZED DRUG - OTHER] IJ (02:22)
[2018-05-15] MEDS ORDERED: FENT50VI IJ (02:22)
[2018-05-15] MEDS ORDERED: MERO500V IV (02:22)
[2018-05-15] MEDS ORDERED: ACET325C PO (02:22)
[2018-05-15] MEDS ORDERED: FENT25PAT TD (02:22)
[2018-05-15] MEDS ORDERED: MINE60OI TP (02:22)
[2018-05-15] MEDS ORDERED: BUDE0.5A3 IH (02:22)
[2018-05-15] MEDS ORDERED: TRAM50TA4 PO (02:22)
[2018-05-15] MEDS ORDERED: GUAI100S13 PO (02:22)
[2018-05-15] MEDS ORDERED: LOPE2CAP PO (02:22)
[2018-05-15] MEDS ORDERED: SEVE800T7 PO (02:22)
[2018-05-15] MEDS ORDERED: PROT946L PO (02:22)
[2018-05-15] MEDS ORDERED: [UNRECOGNIZED DRUG - CODE] IV (02:22)
[2018-05-15] MEDS ORDERED: LORA2VIA8 IJ (02:22)
[2018-05-15] MEDS ORDERED: INSREG SQ (02:22)
[2018-05-15] MEDS ORDERED: ENOX30DI5 SQ (02:22)
[2018-05-15] MEDS ORDERED: FLUC200T8 PO (02:22)
[2018-05-15] MEDS ORDERED: CLON0.1T PO (02:22)
[2018-05-15] MEDS ORDERED: FAMO20VI5 IV (02:22)
[2018-05-15] MEDS ORDERED: LEVA0.6312 IH (02:22)
[2018-05-15] MEDS ORDERED: ASCO500T10 PO (02:22)
[2018-05-15] MEDS ORDERED: NITR0.4T SL (02:22)
[2018-05-15] MEDS ORDERED: DARB60DI SQ (02:22)
[2018-05-15] MEDS ORDERED: [UNRECOGNIZED DRUG - CODE] IV (02:22)
[2018-05-15] MEDS ORDERED: METH40VI31 IV (02:22)
[2018-05-15] MEDS ORDERED: [UNRECOGNIZED DRUG - CODE] IV (02:22)
[2018-05-15] MEDS ORDERED: NORE8PLA12 IV (02:22)
[2018-05-15] MEDS ORDERED: AMIT25TA9 PO (02:22)
[2018-05-15] MEDS ORDERED: CHLO473M2 MM (02:22)
[2018-05-15] MEDS ORDERED: CLOT15CR62 TP (02:22)
[2018-05-15] MEDS ORDERED: [UNRECOGNIZED DRUG - CODE] IV (02:22)
[2018-05-15] MEDS ORDERED: BENZ-51 PO (02:22)
[2018-05-15] MEDS ORDERED: ONDA4VIA30 IJ (02:22)
[2018-05-15] MEDS ORDERED: COLL30OI TP (02:22)
[2018-05-15] MEDS ORDERED: IPRA0.2S54 IH (02:22)
[2018-05-15] MEDS ORDERED: CLONIDINE HCL 0.1 MG TABLET PO PRN (02:30)
[2018-05-15] MEDS ORDERED: [UNRECOGNIZED DRUG - OTHER] IV PRN (02:30)
[2018-05-15] MEDS ORDERED: PROPOFOL 10 MG/ML 20ML VIAL IV PRN (02:30)
[2018-05-15] MEDS ORDERED: ONDANSETRON HCL MDV 20ML 2 MG/ML VIAL IV PRN (02:30)
[2018-05-15] MEDS ORDERED: NOREPINEPHRINE BITARTRATE IV PRN (02:30)
[2018-05-15] MEDS ORDERED: BENZONATATE 100 MG CAPSULE PO PRN (02:30)
[2018-05-15] MEDS ORDERED: NITROGLYCERIN 0.4 MG SL TAB SL PRN (02:30)
[2018-05-15] MEDS ORDERED: GUAIFENESIN SUGAR-FREE 100 MG/5 ML UDCUP PO PRN (02:30)
[2018-05-15] MEDS ORDERED: D5W IV PRN (02:30)
[2018-05-15] MEDS ORDERED: LOPERAMIDE HCL 2 MG CAP PO PRN (02:30)
[2018-05-15] MEDS ORDERED: ACETAMINOPHEN 325 MG TAB PO PRN (02:30)
[2018-05-15] MEDS ORDERED: MAG HYDROX/AL HYDROX/SIMETH ES 30 ML SUSP UDCUP PO PRN (02:30)
[2018-05-15] MEDS ORDERED: LORAZEPAM 2 MG/ML 1 ML VIAL IVP PRN ×2 (02:30→17:15)
[2018-05-15] MEDS ORDERED: TRAMADOL HCL 50 MG TABLET PO PRN (02:30)
[2018-05-15] MEDS ORDERED: FENTANYL CITRATE PF 50 MCG/1 ML 2ML VIAL IJ PRN (02:30)
[2018-05-15] MEDS ORDERED: GLUCAGON 1MG KIT 1 MG ML IM PRN (02:45)
[2018-05-15] MEDS ORDERED: VANCOMYCIN PROTOCOL PER PHARMACY IV SCH (02:45)
[2018-05-15] MEDS ORDERED: POTASSIUM CHLORIDE 10% ELIXIR 20 MEQ/15 ML UDCUP PO PRN ×2 (02:45)
[2018-05-15] MEDS ORDERED: LIDOCAINE HCL-MPF 1% 2ML VIAL IVP PRN ×2 (02:45)
[2018-05-15] MEDS ORDERED: POTASSIUM CHLORIDE 20 MEQ ERTAB PO PRN ×2 (02:45)
[2018-05-15] MEDS ORDERED: PHARMACY COMMUNICATION MISC SCH (02:45)
[2018-05-15] MEDS ORDERED: CLOTRIMAZOLE 30 GM CREAM.GM. TP PRN ×2 (02:45→06:30)
[2018-05-15] MEDS ORDERED: POTASSIUM CHLORIDE 20MEQ/100ML 100 ML IV PRN ×2 (02:45)
[2018-05-15] MEDS ORDERED: DEXTROSE 50%-WATER 50 ML DISP.SYRIN IV PRN (02:45)
[2018-05-15] MEDS: NOREPINEPHRINE 4MG/NS 250ML 250 ML IV SCH ×2 (03:08→15:35)
[2018-05-15] MEDS ORDERED: PROPOFOL 1000 MG/100 ML 100 ML IV PRN (05:45)
[2018-05-15] MEDS ORDERED: COMPOUND IV REFRIGERATED 1 EACH IVSOLN MISC PRN (05:45)
[2018-05-15] MEDS ORDERED: VANCOMYCIN 500MG+NS 100ML 100 ML IV SCH (06:00)
[2018-05-15] MEDS ORDERED: NOREPINEPHRINE BITARTRATE 8 MG in DEXTROSE 5%-WATER 250 ML IV SCH (06:00)
[2018-05-15 06:01] LABS: BASOPHILS % (AUTO) 0.1 % (0.0-5.0); HEMATOCRIT 29.6 % (36-48); LYMPHOCYTES % (AUTO) 2.1 % (21.0-51.0); MEAN CORPUSCULAR HEMOGLOBIN 29.2 pg (27.0-33.0); MEAN CORPUSCULAR HGB CONC 34.1 g/dL (32.0-36.0); MEAN CORPUSCULAR VOLUME 85.6 fL (79-99); MONOCYTES % (AUTO) 0.6 % (3.0-13.0); NEUTROPHILS % (AUTO) 97.2 % (40.0-77.0); PLATELET COUNT (AUTO) 448 K/uL (130-400); RED BLOOD CELL COUNT(AUTO) 3.45 MIL/uL (4.00-5.50); RED CELL DISTRIBUTION WIDTH 17.3 % (11.0-15.5)
[2018-05-15 06:05] LABS: WHITE BLOOD COUNT (AUTO) 37.6 K/uL (4.8-10.8)
[2018-05-15] MEDS: SODIUM CHLORIDE 0.9% 10 ML VIAL IVP SCH ×2 (06:15→15:18)
[2018-05-15] MEDS: INSULIN HUMULIN R 100 UNIT/ML 3ML SQ SCH ×3 (06:20→18:00)
[2018-05-15] MEDS: ALBUTEROL SULFATE 0.083% 2.5 MG/3 ML INH IH SCH ×3 (06:23→18:00)
[2018-05-15] MEDS: IPRATROPIUM 0.5 MG/2.5 ML INH IH SCH ×3 (06:23→18:00)
[2018-05-15] MEDS: BUDESONIDE 0.5 MG/2 ML INH IH SCH ×2 (06:23→18:00)
[2018-05-15] MEDS ORDERED: VANCOMYCIN 1.25 GM in SODIUM CHLORIDE 0.9% 250 ML IV SCH (06:30)
[2018-05-15 06:32] LABS: ALBUMIN 1.2 g/dL (3.5-5.0); BILIRUBIN,TOTAL 1.4 mg/dL (0.2-1.0); CREATININE 2.8 mg/dL (0.5-1.5); TOTAL PROTEIN, SERUM 4.1 g/dL (6.0-8.3)
[2018-05-15 06:41] LABS: BAND NEUTROPHILS % (MANUAL) 17 % (0-2); LYMPHOCYTES % (MANUAL) 1 % (22-44); MAN.DIFF COMMENT-IMPRESSION MANUAL DIFFERENTIAL; METAMYELOCYTES % 3 % (0-0); MONOCYTES % (MANUAL) 4 % (2-9); MYELOCYTES % 1 % (0-0); PLATELET MORPHOLOGY COMMENT SLIGHT INCREASED; SEGMENTED NEUTROPHILS % 74 % (40-70)
[2018-05-15] MEDS ORDERED: DEXTROSE 50%-WATER 25 GM/50 ML VIAL IV SCH (07:30)
[2018-05-15] MEDS ORDERED: SODIUM POLYSTYRENE SULFONATE 15 GM/60 ML ML PO SCH (07:30)
[2018-05-15] MEDS ORDERED: CALCIUM GLUCONATE 1 GM in SODIUM CHLORIDE 0.9% 50 ML IV SCH (07:30)
[2018-05-15] MEDS ORDERED: INSULIN HUMULIN R 100 UNIT/ML 3ML IV SCH (07:30)
[2018-05-15] MEDS: SEVELAMER HCL 800 MG TABLET PO SCH ×3 (08:00→15:18)
[2018-05-15] MEDS ORDERED: FAT EMULSIONS 20% 250ML 250 ML IV SCH ×2 (08:00→21:00)
[2018-05-15] MEDS ORDERED: ARANESP PO SCH (09:00)
[2018-05-15] MEDS ORDERED: MEROPENEM 500 MG VIAL IV SCH (09:00)
[2018-05-15] MEDS ORDERED: FAMOTIDINE/PF 20 MG/2 ML VIAL IV SCH (09:00)
[2018-05-15] MEDS ORDERED: METHYLPREDNISOLONE SOD SUCC 40MG/ML 1ML IVP SCH (09:00)
[2018-05-15] MEDS ORDERED: ASPIRIN 81 MG EC TAB PO SCH (09:00)
[2018-05-15] MEDS ORDERED: FLUCONAZOLE 100 MG TAB PO SCH (09:00)
[2018-05-15] MEDS ORDERED: ENOXAPARIN SODIUM 30 MG/0.3 ML SQ SCH (09:00)
[2018-05-15] MEDS ORDERED: HONEY 1 APPL/ML TUBE TP SCH (09:00)
[2018-05-15] MEDS ORDERED: ASCORBIC ACID 500 MG TAB PO SCH (09:00)
[2018-05-15] MEDS ORDERED: PROMOD PO SCH (09:00)
[2018-05-15] MEDS ORDERED: CLINIMIX IV SCH (09:00)
[2018-05-15] MEDS ORDERED: CHLORHEXIDINE GLUCONATE 473 ML MOUTHWASH MM SCH (09:00)
[2018-05-15] MEDS ORDERED: FLUCONAZOLE 200 MG/NS 100 ML 100 ML IV SCH (11:15)
[2018-05-15] MEDS ORDERED: SODIUM CHLORIDE 0.9% 500ML 500 ML IV ONE (12:30)
[2018-05-15 13:40] LABS: CREATININE 2.8 mg/dL (0.5-1.5); POTASSIUM 5.7 mmol/L (3.5-5.1)
[2018-05-15] MEDS ORDERED: ARTIFICIAL TEARS 3.5 GM OINTMENT OU SCH (15:15)
[2018-05-15] MEDS ORDERED: MORPHINE SULFATE 2 MG/ML 1ML SYG IVP PRN (17:15)
[2018-05-15] MEDS ORDERED: VANCOMYCIN 750MG + NS 250 ML IV SCH ×2 (18:30)
[2018-05-15] MEDS ORDERED: MORPHINE SULFATE 4 MG/1ML SYG ONE (19:23)
[2018-05-15] MEDS ORDERED: AMITRIPTYLINE HCL 25 MG TABLET PO SCH (21:00)
[2018-05-16] VITALS (8 sets, daily range): BP systolic 64–99; BP diastolic 28–40
[2018-05-16] MEDS ORDERED: MORPHINE SULFATE 4 MG/1ML SYG ONE (07:52)
[2018-05-16] MEDS ORDERED: MORPHINE SULFATE 4 MG/1ML SYG IVP PRN (08:00)
== END 2018-05-16 08:40 | disposition expired | DRG 871 ==
LOC: DAH 11:39 → 2CH 11:40
PROVIDERS: ADMIT Internal Medicine Critical Care Medicine; ATTEND Internal Medicine Critical Care Medicine
PROC: 0W9G3ZZ Drainage of Peritoneal Cavity, Percutaneous Approach (ICD-10-PCS; principal; 2018-05-14)
PROC: 0FJ43ZZ Inspection of Gallbladder, Percutaneous Approach (ICD-10-PCS; 2018-05-14)
PROC: 0BH17EZ Insertion of Endotracheal Airway into Trachea, Via Natural or Artificial Opening (ICD-10-PCS; 2018-05-14)
PROC: 5A1945Z Respiratory Ventilation, 24-96 Consecutive Hours (ICD-10-PCS; 2018-05-14)
DX: A41.9 Sepsis, unspecified organism (principal); E43 Unspecified severe protein-calorie malnutrition; J18.9 Pneumonia, unspecified organism; J96.21 Acute and chronic respiratory failure with hypoxia; K65.9 Peritonitis, unspecified; R65.21 Severe sepsis with septic shock; J96.22 Acute and chronic respiratory failure with hypercapnia; R18.8 Other ascites; E87.2 Acidosis; J44.0 Chronic obstructive pulmonary disease with (acute) lower respiratory infection; J47.0 Bronchiectasis with acute lower respiratory infection; N17.9 Acute kidney failure, unspecified; R64 Cachexia; Z68.1 Body mass index [BMI] 19.9 or less, adult; K81.9 Cholecystitis, unspecified; K82.8 Other specified diseases of gallbladder; L89.159 Pressure ulcer of sacral region, unspecified stage; N20.0 Calculus of kidney; Z87.01 Personal history of pneumonia (recurrent)
CPT/HCPCS: 10030; 36415; 36600; 47531; 49083; 71045; 74150; 80048; 80053; 80202; 82247; 82248; 82330; 82435; 82803; 82947; 82948; 83605; 84132; 84295; 85018; 85025; 87071; 87205; 88108; 88305; 89051; 94002; 94003; 94640; 94664; A4218; C1769; C1887; J0610; J1450; J1644; J1815; J2060; J2185; J2270; J2920; J3010; J3370; J3490; J7030; J7040; J7070; Q9967